=== PATIENT | female | born 1970 | race Caucasian/White ===

== ENCOUNTER → 2018-04-14 | Outpatient (CLI) | payer OTHER ==
--- NOTE | 2018-04-14 18:42 | CT ---
EXAMINATION TYPE: CT sinus wo con DATE OF EXAM: 04/14/2018 COMPARISON: NONE HISTORY: Sinus pressure, unsteady gait, and HERNANDEZ per patient. Chronic sinusitis per order. CT DLP: 581 mGycm. Automated Exposure Control for Dose Reduction was Utilized. TECHNIQUE: CT scan of the sinuses is performed without contrast, axial images are obtained, coronal r eformatted images are also reviewed. FINDINGS: There is mild to moderate mucosal thickening in the left maxillary sinus. Dependent Air-flu id level in left maxillary sinus is present. There may be additional small mucous retention cyst or p olyp in the posterior inferior left maxillary sinusitis image 13. Dependent opacity right maxillary sinus favors air fluid level over small mucous retention cyst or polyp axial image 13. There is small mucous retention cyst or polyp posterior right aspect of the larger left sphenoid sinu s axial image 25. Mild mucosal thickening anteriorly is present. There is mild to moderate mucosal thickening involving the ethmoid sinuses bilaterally most prominent anteriorly. There is some patchy opacification involving the inferior aspect bilateral frontal sinus es with mild mucosal thickening seen in the inferior left frontal sinus. The ostiomeatal complex is blocked by soft tissue density in the left. It is patent on the right but narrowed on coronal image 19. Visualized portion of mastoid air cells show no abnormal opacification. The globes are intact bilate rally. IMPRESSION: Acute on chronic paranasal sinus disease as detailed above.
== END | disposition home or self-care (01) ==
LOC: RADCTMAIN 18:12
PROVIDERS: ATTEND Otolaryngology
DX: J01.90 Acute sinusitis, unspecified (principal); J34.89 Other specified disorders of nose and nasal sinuses
CPT/HCPCS: 70486

== ENCOUNTER 2019-03-15 19:12 | Inpatient (IN) | payer BC, OTHER ==
[2019-03-15] MEDS ORDERED: NITROGLYCERIN SL TABS 0.4 MG TAB SUBLINGUAL STA (20:04)
[2019-03-15 20:17] LABS: Basophils # (A) 0.1 k/uL (0-0.2); Basophils % (A) 1 %; Eosinophils # (A) 0.1 k/uL (0-0.7); Eosinophils % (A) 2 %; HCT 45.3 % (34.0-46.0); HGB 14.9 gm/dL (11.4-16.0); Lymphocytes # (A) 2.3 k/uL (1.0-4.8); Lymphocytes % (A) 33 %; MCH 29.3 pg (25.0-35.0); MCHC 32.9 g/dL (31.0-37.0); Mean Platelet Volume 7.3; Monocytes # (A) 0.4 k/uL (0-1.0); Monocytes % (A) 6 %; Neutrophils # (A) 3.9 k/uL (1.3-7.7); Neutrophils % (A) 57 %; Platelet Count 267 k/uL (150-450); RDW 14.4 % (11.5-15.5); WBC 6.8 k/uL (3.8-10.6)
--- NOTE | 2019-03-15 20:22 | XR ---
EXAMINATION TYPE: XR chest 2V DATE OF EXAM: 03/15/2019 COMPARISON: None HISTORY: 48-year-old female with chest pain TECHNIQUE: PA and lateral views FINDINGS: Heart upper limits of normal in size. Aorta and with pulmonary vasculature within normal limits. Stra ndy left lower lung atelectasis. No consolidation or pleural effusion. IMPRESSION: Borderline heart size but otherwise without acute cardiopulmonary process.
[2019-03-15 20:25] LABS: ALT 12 U/L (9-52); AST 24 U/L (14-36); African American GFR (CKD) >90 (>60 ml/min/1.73 sqM); Albumin 4.2 g/dL (3.5-5.0); Alkaline Phosphatase 59 U/L (38-126); Anion Gap 10 mmol/L; Blood Urea Nitrogen 8 mg/dL (7-17); Calcium 9.3 mg/dL (8.4-10.2); Carbon Dioxide 19 mmol/L (22-30); Chloride 108 mmol/L (98-107); Glucose 104 mg/dL (74-99); Magnesium 1.9 mg/dL (1.6-2.3); Sodium 137 mmol/L (137-145); Total Bilirubin 0.5 mg/dL (0.2-1.3); Total Protein 7.1 g/dL (6.3-8.2)
[2019-03-15 20:29] LABS: INR 0.9 (<1.2); Partial Thromboplastin Time 23.7 sec (22.0-30.0); Prothrombin Time 9.7 sec (9.0-12.0)
[2019-03-15 20:31] LABS: Potassium 4.4 mmol/L (3.5-5.1)
[2019-03-15] MEDS ORDERED: ATORVASTATIN 80 MG TAB PO STA (21:03)
[2019-03-15] MEDS ORDERED: ACETAMINOPHEN TAB 325 MG TAB PO PRN (21:07)
[2019-03-15] MEDS ORDERED: NALOXONE 0.4 MG/ML 1 ML VIAL IV PRN (21:07)
[2019-03-15] MEDS ORDERED: MORPHINE SULFATE 4 MG/ML SYRINGE IV PRN (21:07)
[2019-03-15] MEDS ORDERED: NITROGLYCERIN OINT 1 INCH/GM PACKET TOPICAL STA (21:23)
[2019-03-15] MEDS ORDERED: CLOPIDOGREL 75 MG TAB PO STA (21:28)
--- NOTE | 2019-03-15 21:36 | ED ---
Chest Pain HPI - General Source: patient, family Mode of arrival: wheelchair Limitations: no limitations <Maged Heard - Last Filed: 03/15/19 21:29> <Fernandez Dugan - Last Filed: 03/15/19 21:50> - General Chief Complaint: Chest Pain Stated Complaint: Chest Pain Time Seen by Provider: 03/15/19 19:40 - History of Present Illness Initial Comments: Patient is a 48-year-old male presenting to the emergency department with chief complaint of chest pain. Patient reports a sudden onset of chest pain 2 days ago that has not resolved. Patient reports substernal, dull chest pain that radiates to bilateral shoulders. Patient reports mild episodes of diaphoresis with the onset of the pain but has since resolved. Patient denies any nausea or vomiting. Patient does report lightheadedness but no dizziness. Patient reports the pain is nonexertional. Patient denies shortness of breath. Patient states that she has anxiety and initially thought the pain was related to a panic attack. Patient is a smoker and does have a positive family history of cardiovascular disease. Patient does not have hypertension or hypercholesterolemia. Patient denies taking medication to alleviate his symptoms. Patient denies any blurry vision, abdominal pain or back pain. (Maged Heard) - Related Data Home Medications Medication Instructions Recorded Confirmed Acetaminophen Tab [Tylenol Tab] 650 mg PO Q4H PRN 03/15/19 03/15/19 Naproxen Sodium [Midol] 110 mg PO Q12HR PRN 03/15/19 03/15/19 Ranitidine HCl [Zantac] 75 mg PO DAILY PRN 03/15/19 03/15/19 Allergies Allergy/AdvReac Type Severity Reaction Status Date / Time aspirin Allergy Unknown HIVES, HOT Verified 03/15/19 19:44 Review of Systems ROS Other: All systems not noted in ROS Statement are negative. <Maged Heard - Last Filed: 03/15/19 21:29> ROS Other: All systems not noted in ROS Statement are negative. <Fernandez Dugan - Last Filed: 03/15/19 21:50> ROS Statement: Those systems with pertinent positive or pertinent negative responses have been documented in the HPI. EKG Findings - EKG Results: EKG: interpreted by ERMD (Says bradycardia rate of 46. Interval 162 QRS duration 86 QT since QTC 436/381ST-T wave elevations) <RitchieFernandez - Last Filed: 03/15/19 21:50> Past Medical History Past Medical History: Thyroid Disorder Additional Past Medical History / Comment(s): GRAVES DISEASE. History of Any Multi-Drug Resistant Organisms: None Reported Past Surgical History: Cholecystectomy, Orthopedic Surgery, Tubal Ligation Additional Past Surgical History / Comment(s): RIGHT LEG FX AND ANKLE SURGERY WITH HARDWARE AND REMOVAL OF HARDWARE. sinus surgery Past Anesthesia/Blood Transfusion Reactions: Motion Sickness, No Reported Reaction Additional Past Anesthesia/Blood Transfusion Reaction / Comment(s): STATES IF SHE RECEIVES TOO MUCH ANESTHESIA SHE TAKES A LONG TIME TO WAKE UP. Smoking Status: Heavy tobacco smoker Past Alcohol Use History: None Reported Past Drug Use History: None Reported - Past Family History Mother Family Medical History: No Reported History <Maged Heard - Last Filed: 03/15/19 21:29> General Exam Limitations: no limitations General appearance: alert, in no apparent distress, obese Head exam: Present: atraumatic, normocephalic, normal inspection Eye exam: Present: normal appearance, PERRL, EOMI Pupils: Present: normal accommodation ENT exam: Present: normal exam, mucous membranes moist, normal external ear exam Neck exam: Present: normal inspection, full ROM Respiratory exam: Present: normal lung sounds bilaterally Cardiovascular Exam: Present: regular rate, normal rhythm, normal heart sounds GI/Abdominal exam: Present: soft, normal bowel sounds Extremities exam: Present: normal inspection, full ROM, normal capillary refill, other (+2 dorsalis pedis and posterior tibial as bilaterally. +2 ulnar radial pulses bilaterally.) Back exam: Present: normal inspection, full ROM Neurological exam: Present: alert, oriented X3 Psychiatric exam: Present: normal affect, normal mood Skin exam: Present: warm, intact, normal color <Maged Heard - Last Filed: 03/15/19 21:29> Course <RitchieFernandez - Last Filed: 03/15/19 21:50> Vital Signs 03/15/19 03/15/19 19:14 20:32 Temperature 98.4 F Pulse Rate 63 45 L Respiratory 18 18 Rate Blood Pressure 142/83 128/83 O2 Sat by Pulse 98 100 Oximetry - Reevaluation(s) Reevaluation #1: 03/15/19 21:48 PA supervision: I pursued a [id number] evaluation the patient she presents with chest pain agreed to the shoulders yesterday. She came in today complaini ng of this pain currently she is pain-free she did have an elevated troponin. I did discuss the findings with her significant other were present. Patient will be admitted for workup. I did discuss the case with Dr. Claudio. The patient is ALLERGIC to aspirin she'll be placed on heparin and nitro glycerin paste and Plavix. A echocardiogram will be performed. The case is discussed with Dr. Johns. (Fernandez Dugan) Chest Pain [facility] - Differential Diagnosis AMI, ACS, Pericarditis - Wells Criteria Clinical Symptoms of DVT: (0) No No Alternative Diagnosis: (0) No Immobilization of Surgery in Previous 4 Weeks: (0) No Previous DVT/PE: (0) No Hemoptysis: (0) No Malignancy: (0) No <Maged Heard - Last Filed: 03/15/19 21:29> - [facility] Patient is a 48-year-old female presenting to emergency Department with chief complaint of chest pain. Patient reports sudden onset of substernal, dull, not exertional chest pain 2 days. Patient denies one episode of diaphoresis that has since resolved. Patient does report light headedness but no dizziness. Patient does not have shortness of breath. Patient denies nausea or vomiting. Patient has no abdominal back pain. EKG is unremarkable. CBC and CMP are unremarkable. Patient does have elevated troponin of 0.71. The patient was given sublingual nitro and does report decrease in pain. Patient appears to have a NSTEMI. Patient will be admitted for further medical management. Patient was given Plavix, Lipitor, nitro paste and low intensity heparin. Patient does have a heart score of 4. The admitting physician is Dr. Johns. Dr. dugan examine the patient and is in agreement with the treatment plan. Dr. Claudio cunsulted for cardioogy. (Maged Heard) Critical Care Time Critical Care Time: Yes <Fernandez Dugan - Last Filed: 03/15/19 21:50> Critical Care Time: 31 minutes of critical care time which includes initial presentation my evaluation including history physical review of labs and x-rays discussion with multiple physicians. Review of old charting that was available. Discussion with the physician secretary administrative assistant and review of orders. (Fernandez Dugan) Disposition Is patient prescribed a controlled substance at d/c from ED?: No Time of Disposition: 21:36 <Maged Heard - Last Filed: 03/15/19 21:29> <Fernandez Dugan - Last Filed: 03/15/19 21:50> Clinical Impression: NSTEMI (non-ST elevated myocardial infarction) Disposition: ADMITTED IP TO THIS HOSP Condition: Stable
[2019-03-15] MEDS ORDERED: HEPARIN SODIUM,PORCINE 5,000 UNIT/ML 1 ML VIAL IV ONE (23:38)
[2019-03-15] MEDS ORDERED: HEPARIN SODIUM,PORCINE 5,000 UNIT/ML 1 ML VIAL IV PRN (23:38)
[2019-03-15] MEDS ORDERED: HEPARIN SOD,PORK IN 0.45% NACL 25,000 UNIT in 0.45% NACL 1 250ML.BAG IV SCH (23:45)
[2019-03-15] MEDS: NICOTINE 21MG/24HR PATCH TRANSDERM SCH (23:47)
[2019-03-15] MEDS ORDERED: NITROGLYCERIN OINT 1 INCH/GM PACKET TOPICAL ONE (23:51)
[2019-03-16] MEDS ORDERED: ATORVASTATIN 80 MG TAB PO STA (08:21)
[2019-03-16] MEDS ORDERED: ALPRAZolam 0.25 MG TAB PO PRN (08:21)
[2019-03-16] MEDS ORDERED: NITROGLYCERIN SL TABS 0.4 MG TAB SUBLINGUAL PRN ×2 (08:21→11:04)
[2019-03-16] MEDS ORDERED: ALPRAZolam 0.5 MG TAB PO PRN (08:21)
[2019-03-16] MEDS ORDERED: SODIUM CHLORIDE 0.9% 1,000 ML in EMPTY BAG 1 BAG IV ONE (08:21)
[2019-03-16] MEDS: NICOTINE 21MG/24HR PATCH TRANSDERM SCH (08:27)
[2019-03-16] MEDS ORDERED: IV FLUID CONTINUATION 300 ML IV ONE (09:18)
[2019-03-16] MEDS ORDERED: LIDOCAINE 1% INJ 10MG/ML (20 ML MDV) ONE (09:36)
[2019-03-16] MEDS: MIDAZOLAM (PF) 2 MG/2 ML VIAL IV ONE ×2 (09:45→10:15)
[2019-03-16] MEDS ORDERED: LIDOCAINE 1% INJ 10MG/ML (20 ML MDV) SQ ONE (09:49)
[2019-03-16] MEDS ORDERED: CLOPIDOGREL 75 MG TAB ONE (10:10)
[2019-03-16] MEDS ORDERED: CLOPIDOGREL 75 MG TAB PO ONE (10:15)
[2019-03-16] MEDS ORDERED: ASPIRIN 81 MG ONE (10:24)
[2019-03-16] MEDS ORDERED: diphenhydrAMINE 50 MG/ML 1 ML VIAL ONE (10:24)
[2019-03-16 10:27] LABS: Cholesterol 167 mg/dL (<200); HDL Cholesterol 33 mg/dL (40-60); LDL Cholesterol,Calculated 109 mg/dL (0-99); Triglycerides 124 mg/dL (<150)
[2019-03-16] MEDS ORDERED: diphenhydrAMINE 50 MG/ML 1 ML VIAL IVP ONE (10:30)
[2019-03-16] MEDS ORDERED: ASPIRIN 81 MG PO ONE (10:30)
[2019-03-16] MEDS ORDERED: BIVALIRUDIN BOLUS 250 MG/50 ML IV ONE (10:35)
[2019-03-16] MEDS ORDERED: BIVALIRUDIN 250 MG in SODIUM CHLORIDE 0.9% 50 ML IV ONE (10:35)
[2019-03-16] MEDS ORDERED: IOPAMIDOL-370 100ML BTL INJ ONE (10:47)
[2019-03-16] MEDS ORDERED: IOPAMIDOL-370 50ML BTL INJ ONE (10:48)
[2019-03-16] MEDS ORDERED: MAG HYDROX/AL HYDROX/SIMETH 30 ML CUP PO PRN (11:04)
[2019-03-16] MEDS ORDERED: RX INFO: IV CONTRAST WAS GIVEN 1 EACH MISC MISCELLANE PRN (11:04)
[2019-03-16] MEDS ORDERED: ZOLPIDEM 5 MG TAB PO PRN (11:04)
[2019-03-16] MEDS ORDERED: ATROPINE SULFATE 0.1 MG/ML 10ML SYRINGE IV PRN (11:04)
--- NOTE | 2019-03-16 11:59 | CC ---
CARDIAC CATHETERIZATION REPORT INDICATION: Non ST-segment elevation NC. PROCEDURE NOTE: After obtaining informed consent, left heart catheterization, coronary angiogram are performed via the right femoral artery using standard Mili catheters. The patient tolerated the procedure well without any obvious immediate complications. Patient received moderate conscious sedation. Total sedation time was 16 minutes. FINDINGS: 1. HEMODYNAMICS: Left ventricular end-diastolic pressure is 14-16 mm. There is no significant gradient across the aortic valve. 2. LEFT VENTRICULOGRAM: Left ventriculogram is not performed. 3. ANGIOGRAPHIC DATA: Left main coronary artery: Left main coronary artery is a normal-sized vessel and is free of stenosis. Divides into left anterior descending coronary artery and circumflex coronary artery. Circumflex coronary artery and its branches are free of significant stenosis. LAD is a large vessel that wraps around the apex of the heart. In the mid LAD there is a focal area of 50% stenosis noted. Right coronary artery is a large dominant vessel. Mid RCA shows a 99% stenosis. There are collaterals from the left system to the distal RCA. CONCLUSIONS: 1. 99% focal stenosis involving right coronary artery which is a vessel responsible for the myocardial infarction and patient will undergo angioplasty of the same. 2. Moderate to severe stenosis involving mid LAD. PLAN: Patient will have angioplasty of the RCA. We may do an FFR of the LAD and treat her medically and do a stress test down the road. I advised the patient to quit smoking. LULU / KEILAN: [id number] /
[2019-03-16 12:14] VITALS: BMI 36.0
--- NOTE | 2019-03-16 12:19 | CONS ---
CONSULTATION CHIEF COMPLAINT: Chest pain. Maya is a 48-year-old lady with no significant past medical history who presented to hospital complaining of precordial chest pressure. She describes it as moderate to severe, intermittent episodes of precordial chest discomfort that she describes as a pressure-like sensation, came on at rest, radiated to her throat. Yesterday it was particularly worse, hence, she came to the emergency room and was admitted. The pain has radiated down her both arms into her back also. Her EKG did not reveal ischemic changes but the first set of troponin was elevated due to which she was admitted to hospital and Cardiology had been consulted for the same. Her first troponin was 0.7, second one was 1.1. This morning, patient is chest pain-free and hemodynamically stable on intravenous heparin and aspirin. PAST MEDICAL HISTORY: Negative for hypertension, diabetes, dyslipidemia. MEDICATIONS: Medications at home include Zantac and Tylenol. ALLERGIES: ASPIRIN. FAMILY HISTORY: Negative for premature coronary artery disease. SOCIAL HISTORY: Significant for smoking. There is no history of EtOH abuse or drug abuse. REVIEW OF SYSTEMS: HEENT is unremarkable. CARDIAC as described above. RESPIRATORY negative. GI negative. GENITOURINARY negative. ALLERGY/IMMUNOLOGY negative. SKIN negative. MUSCULOSKELETAL significant for arthritis. PSYCHOSOCIAL negative. ENDOCRINE Negative. DERM negative. CONSTITUTIONAL negative. ONCOLOGICAL negative. The rest of the system review is not relevant. PHYSICAL EXAM: Patient is comfortable at rest. Heart rate is 46 beats per minute. Blood pressure is 140/83, respiratory rate is 18. Chest exam reveals good air entry bilaterally. Heart exam reveals first and second heart sounds. No gallop. No murmur. No rub. Abdomen is soft, nontender. Exam of extremities did not reveal edema. Peripheral pulses are felt. PATIENT NAVIGATOR exam did not reveal focal neurological deficits. LABS: Show that the hemoglobin is 14.9, platelet count is 267. Potassium is 4.4, creatinine is 0.5. Troponins are elevated. ASSESSMENT: 1. Acute non ST-segment elevation myocardial infarction. 2. History of smoking. PLAN: Patient had been advised to quit smoking. The patient was advised to undergo cardiac catheterization with a view to performing angioplasty. She had been explained of risks, benefits and alternatives, understood and accepted. She will have an echo done today. MMODL / IJN: [id number] /
--- NOTE | 2019-03-16 12:38 | P.HPIM ---
History of Present Illness This is a pleasant 48 years old female with past medical history of Graves' disease, hypothyroidism. Presents because of chest tightness with left shoulder pain and left arm pain of 48 hours which get worse last night. She denies dyspnea or fever. Gentleman from stomach upset when she eats because of her gallbladder is removed. She has her tubes ligated and she refuses test when offered, risks benefits and alternatives are explained and she verbalized understanding. Patient smokes about pack per day but she denies alcohol or illicit tracts. Patient counseled to quit and she has nicotine patch now Vitas looks stable, patient is mildly bradycardic, patient is afebrile. Labs show an unremarkable CBC and BMP, she has elevated troponin at 0.7, 1.1 and 1.0. Patient on admission was a started on heparin drip and aspirin 81 mg as well as dose of Plavix. And IV fluids. No acute process. EKG showing bradycardia at [address]-T changes except he with inversion in the lead III and aVF. Patient already underwent cardiac cath showing 99% stenosis of the right coronary artery and planned for angioplasty, with moderate to severe stenosis of the mid LAD Review of Systems CONSTITUTIONAL: No fever, no malaise, no fatigue. HEENT: No recent visual problems or hearing problems. Denied any sore throat. CARDIOVASCULAR: No orthopnea, PND, no palpitations, no syncope. PULMONARY: No shortness of breath, no cough, no hemoptysis. GASTROINTESTINAL: No diarrhea, no nausea, no vomiting, no abdominal pain. Normoactive bowel sounds. NEUROLOGICAL: No headaches, no weakness, no numbness. HEMATOLOGICAL: Denies any bleeding or petechiae. GENITOURINARY: Denies any burning micturition, frequency, or urgency. MUSCULOSKELETAL/RHEUMATOLOGICAL: Denies any joint pain, swelling, or any muscle pain. ENDOCRINE: Denies any polyuria or polydipsia. ROS unobtainable: due to endotracheal tube Past Medical History Past Medical History: Thyroid Disorder Additional Past Medical History / Comment(s): GRAVES DISEASE. History of Any Multi-Drug Resistant Organisms: None Reported Past Surgical History: Cholecystectomy, Orthopedic Surgery, Tubal Ligation Additional Past Surgical History / Comment(s): RIGHT LEG FX AND ANKLE SURGERY WITH HARDWARE AND REMOVAL OF HARDWARE. sinus surgery Past Anesthesia/Blood Transfusion Reactions: Motion Sickness, No Reported Reaction Additional Past Anesthesia/Blood Transfusion Reaction / Comment(s): STATES IF SHE RECEIVES TOO MUCH ANESTHESIA SHE TAKES A LONG TIME TO WAKE UP. Past Psychological History: Anxiety, Depression Additional Psychological History / Comment(s): NO RX. Smoking Status: Heavy tobacco smoker Past Alcohol Use History: None Reported Additional Past Alcohol Use History / Comment(s): SMOKES 1PPD. SMOKING SINCE 14 YEARS OLD -( 34 YEARS) Past Drug Use History: None Reported - Past Family History Mother History Unknown: Yes Family Medical History: No Reported History Father Family Medical History: Hypertension Medications and Allergies Home Medications Medication Instructions Recorded Confirmed Type Acetaminophen Tab [Tylenol Tab] 650 mg PO Q4H PRN 03/15/19 03/15/19 History Naproxen Sodium [Midol] 110 mg PO Q12HR PRN 03/15/19 03/15/19 History Ranitidine HCl [Zantac] 75 mg PO DAILY PRN 03/15/19 03/15/19 History Allergies Allergy/AdvReac Type Severity Reaction Status Date / Time aspirin Allergy Unknown HIVES, HOT Verified 03/15/19 19:44 Physical Exam Vitals: Vital Signs Temp Pulse Pulse Resp BP BP Pulse Ox 03/16/19 08:49 99 03/16/19 08:00 98.2 F 18 128/66 100 03/16/19 05:16 46 L 16 03/15/19 22:55 97.9 F 44 L 18 160/88 99 03/15/19 22:00 49 L 140/83 03/15/19 21:30 43 L 139/96 99 03/15/19 21:00 60 128/78 98 03/15/19 20:35 128/78 03/15/19 20:32 45 L 18 128/83 100 03/15/19 20:30 44 L 100 03/15/19 20:00 44 L 03/15/19 19:38 51 L 03/15/19 19:14 98.4 F 63 18 142/83 98 Intake and Output 03/15/19 03/16/19 03/16/19 22:59 06:59 14:59 Intake Total 252.989 Output Total 300 Balance -47.011 Intake: IV 178 Intake, IV Titration 74.989 Amount Heparin Sod,Pork in 0.45% 74.989 NaCl 25,000 unit In 0.45 % NaCl 1 250ml.bag @ 9 UNITS/KG/HR 9.108 mls/hr IV .Q24H [facility] Rx#: [id number] Output: Urine 300 Other: Weight 101.605 kg 101.2 kg 101.2 kg GENERAL: The patient is alert and oriented x3, not in any acute distress. Obese HEENT: Pupils are round and equally reacting to light. EOMI. No scleral icterus. No conjunctival pallor. Normocephalic, atraumatic. No pharyngeal erythema. No thyromegaly. CARDIOVASCULAR: S1 and S2 present. No murmurs, rubs, or gallops. PULMONARY: Chest is clear to auscultation, no wheezing or crackles. ABDOMEN: Soft, nontender, nondistended, normoactive bowel sounds. No palpable organomegaly. MUSCULOSKELETAL: No joint swelling or deformity. EXTREMITIES: No cyanosis, clubbing, or pedal edema. NEUROLOGICAL: Gross neurological examination did not reveal any focal deficits. SKIN: No rashes. Results CBC & Chem 7: 03/15/19 19:50 03/15/19 19:50 Labs: Abnormal Lab Results - Last 24 Hours (Table) 03/15/19 03/15/19 03/16/19 Range/Units 19:50 19:50 01:46 APTT (22.0-30.0) sec Chloride 108 H (98-107) mmol/L Carbon Dioxide 19 L (22-30) mmol/L Glucose 104 H (74-99) mg/dL Troponin I 0.741 H* 1.140 H* (0.000-0.034) ng/mL LDL Cholesterol, Calc (0-99) mg/dL HDL Cholesterol (40-60) mg/dL 03/16/19 03/16/19 03/16/19 Range/Units 05:41 08:11 10:10 APTT 30.8 H (22.0-30.0) sec Chloride (98-107) mmol/L Carbon Dioxide (22-30) mmol/L Glucose (74-99) mg/dL Troponin I 1.050 H* (0.000-0.034) ng/mL LDL Cholesterol, Calc 109 H (0-99) mg/dL HDL Cholesterol 33 L (40-60) mg/dL Thrombosis Risk Factor Assmnt - Choose All That Apply Any of the Below Risk Factors Present?: Yes Each Factor Represents 1 point: Age 41-60 years, Oral contraceptives or hormone replacement therapy Thrombosis Risk Factor Assessment Total Risk Factor Score: 2 Thrombosis Risk Factor Assessment Level: Low Risk Assessment and Plan Assessment: Non-STEMI Mild asymptomatic bradycardia Nicotine dependence Obesity Status post cholecystectomy Plan: This is a pleasant 48 years old female who presents with non-STEMI. Cardiac cath showing 99% stenosis of the RCA and moderate to severe stenosis of the mid LAD, planned for angioplasty status post stent placement. Continue with nicotine patch Labs and medication were reviewed.. Continue same treatment. Continue with symptomatic treatment. Resume home medication. Monitor lytes and vitals. DVT and GI prophylaxis. Further recommendations of the clinical course of the patient DVT prophylaxis: Subcutaneous heparin GI Prophylaxis: Pepcid Prognosis is guarded
--- NOTE | 2019-03-16 13:35 | ECHOF ---
Referral Reason:dc MEASUREMENTS -------- HEIGHT: 165.1 cm WEIGHT: 101.2 kg BP: RVIDd: 2.7 cm (< 3.3) IVSd: 1.0 cm (0.6 - 1.1) LVIDd: 4.3 cm (3.9 - 5.3) LVPWd: 1.2 cm (0.6 - 1.1) IVSs: 1.4 cm LVIDs: 3.4 cm LVPWs: 1.4 cm LA Diam: 3.9 cm (2.7 - 3.8) LAESV Index (A-L): 24.55 ml/m Ao Diam: 3.1 cm (2.0 - 3.7) AV Cusp: 1.4 cm (1.5 - 2.6) LA Diam: 3.5 cm (2.7 - 3.8) MV EXCURSION: 21.866 mm (> 18.000) MV EF SLOPE: 85 mm/s (70 - 150) EPSS: 0.8 cm MV E Turner: 1.23 m/s MV DecT: 215 ms MV A Turner: 0.83 m/s MV E/A Ratio: 1.49 RAP: 5.00 mmHg RVSP: 11.59 mmHg FINDINGS -------- Sinus rhythm. This was a technically good study. The left ventricular size is normal. Overall left ventricular systolic function is low-normal with, an EF between 50 - 55 %. Inferior basal Hypokinesis The right ventricle is normal in size. The left atrial size is normal. Normal LA size by volume 22+/-6 ml/m2. The right atrial size is normal. There is mild aortic valve sclerosis. There is no evidence of aortic regurgitation. Mild mitral annular calcification present. Mild mitral regurgitation is present. Mild tricuspid regurgitation present. There is no evidence of pulmonary hypertension. The right v entricular systolic pressure, as measured by Doppler, is 11.59mmHg. There is no pulmonic regurgitation present. The aortic root size is normal. There is no pericardial effusion. CONCLUSIONS -------- 1. Sinus rhythm. 2. This was a technically good study. 3. The left ventricular size is normal. 4. Overall left ventricular systolic function is low-normal with, an EF between 50 - 55 %. 5. Inferior basal Hypokinesis 6. The right ventricle is normal in size. 7. The left atrial size is normal. 8. Normal LA size by volume 22+/-6 ml/m2. 9. The right atrial size is normal. 10. There is mild aortic valve sclerosis. 11. Mild mitral annular calcification present. 12. Mild mitral regurgitation is present. 13. Mild tricuspid regurgitation present. 14. There is no evidence of pulmonary hypertension. 15. The right ventricular systolic pressure, as measured by Doppler, is 11.59mmHg. 16. There is no pulmonic regurgitation present. 17. The aortic root size is normal. 18. There is no pericardial effusion. PRESSURE WELDER: Inge Arana RDCS
[2019-03-16] MEDS: diphenhydrAMINE ELIXIR 25 MG/10 ML CUP PO SCH ×2 (15:04→22:40)
--- NOTE | 2019-03-16 17:26 | PTCA ---
PERCUTANEOUSTRANS CORORONARY ANGIOGRAPHY 03/16/2019 PROCEDURE: PTCA and stenting of proximal RCA. PERFORMED BY: Dr. Sarai Snyder. Moderate conscious sedation time was 17 minutes. Patient was administered Versed. Oxygen saturation, hemodynamics and EKG were monitored closely. CLINICAL INFORMATION: Mrs. Maya Cruz is a 48-year-old lady with a history of smoking who came into the hospital with episode of chest pain, had a T-wave inversion in inferior leads and troponin went up and presented as a non-ST elevation [place]. She was evaluated by Dr. Claudio who performed cardiac cath which revealed 95% stenosis in the proximal RCA which was a fair caliber technically dominant vessel. There was also a mid LAD long lesion of about 70-75%, eccentric in nature. She was advised intervention of the RCA which was the culprit vessel. I saw the patient following the cardiac cath, explained to her the rationale, risks, benefits, options and proceeded with the procedure. PROCEDURE NOTE: The existing 6-Indian introducer in the right femoral artery was used to perform procedure. I used a standard right Mili guide catheter and a run-through wire to cross the lesion. A 2.25 caliber 12 mm Trek balloon was used to pre-dilate the lesion. I then deployed a 15 mm long 2.5 caliber Xience stent at 11 atmospheres. Patient had chest pain. No EKG changes. Excellent angiographic result was achieved. She received 600 mg of Plavix. She received Angiomax bolus and infusion. There was a question of aspirin allergy with some hives and a question of shortness of breath with aspirin. However, I gave her 81 mg in the laborer aquatic life and following the procedure, she had no hives and she had no issues at all. I do not believe she has any significant aspirin allergy. We will, therefore, continue aspirin 81 mg daily that was given in the laborer aquatic life. The sheath was then taken out and Angio-Seal device used to secure hemostasis and she was sent to the room in stable condition. Excellent angiographic result without complication was achieved. I expect the patient to be discharged soon. She does have an LAD lesion which will be addressed as an outpatient at a later time. MMODL / IJN: [id number] /
[2019-03-16] MEDS: SODIUM CHLORIDE 0.9% 1,000 ML IV SCH ×2 (20:12)
[2019-03-16] MEDS: ATORVASTATIN 80 MG TAB PO SCH (20:15)
[2019-03-16] MEDS: FAMOTIDINE 20 MG/2 ML VIAL IV SCH (20:15)
[2019-03-16] MEDS ORDERED: diphenhydrAMINE 25 MG CAP PO SCH (21:00)
[2019-03-17 06:30] LABS: Basophils # (A) 0.1 k/uL (0-0.2); Basophils % (A) 1 %; Eosinophils # (A) 0.2 k/uL (0-0.7); Eosinophils % (A) 2 %; HCT 45.3 % (34.0-46.0); HGB 14.7 gm/dL (11.4-16.0); Lymphocytes # (A) 2.8 k/uL (1.0-4.8); Lymphocytes % (A) 35 %; MCH 29.6 pg (25.0-35.0); MCHC 32.4 g/dL (31.0-37.0); MCV 91.4 fL (80.0-100.0); Mean Platelet Volume 7.5; Monocytes # (A) 0.5 k/uL (0-1.0); Monocytes % (A) 6 %; Neutrophils # (A) 4.4 k/uL (1.3-7.7); Neutrophils % (A) 54 %; Platelet Count 249 k/uL (150-450); RBC 4.96 m/uL (3.80-5.40); RDW 14.7 % (11.5-15.5)
[2019-03-17 06:40] LABS: African American GFR (CKD) >90 (>60 ml/min/1.73 sqM); Anion Gap 9 mmol/L; Blood Urea Nitrogen 13 mg/dL (7-17); Calcium 9.1 mg/dL (8.4-10.2); Carbon Dioxide 22 mmol/L (22-30); Chloride 107 mmol/L (98-107); Glucose 134 mg/dL (74-99); Potassium 4.4 mmol/L (3.5-5.1); Sodium 138 mmol/L (137-145)
--- NOTE | 2019-03-17 07:08 | P.PN ---
Subjective Progress Note Date: 03/17/19 Principal diagnosis: This is a continue progress note on a 48-year-old white female with history of RCA stenosis with non-ST elevation [place]. The patient is sitting comfortably with decreased shortness of breath. The patient clinically is improved. No voiding difficulties are stated. The patient states no significant nausea, vomiting or diarrhea. The patient is tolerating diet appropriately. Objective - Vital Signs Vital signs: Vital Signs Temp 98.1 F 03/17/19 04:00 Pulse 62 03/17/19 04:00 Resp 16 03/17/19 04:00 BP 151/66 03/17/19 04:00 Pulse Ox 98 03/17/19 04:00 Intake & Output 03/16/19 03/17/19 03/17/19 18:59 06:59 18:59 Intake Total 474.989 Output Total 701 Balance -226.011 Weight 101.2 kg 102.8 kg Intake: IV 178 Intake, IV Titration 74.989 Amount Heparin Sod,Pork in 0.45% 74.989 NaCl 25,000 unit In 0.45 % NaCl 1 250ml.bag @ 9 UNITS/KG/HR 9.108 mls/hr IV .Q24H [facility] Rx#: [id number] Oral 222 Output: Urine 700 Stool 1 Other: # Voids 1 - Constitutional General appearance: Present: average body habitus - EENT Eyes: Present: EOMI. Absent: abnormal pupil ENT: Absent: hard of hearing - Neck Neck: Absent: lymphadenopathy - Respiratory Respiratory: bilateral: CTA - Cardiovascular Rhythm: regular Heart sounds: normal: S1, S2 Abnormal Heart Sounds: Absent: S3 Gallop - Gastrointestinal General gastrointestinal: Present: soft. Absent: tenderness - Neurologic Neurologic: Present: CNII-XII intact - Labs CBC & Chem 7: 03/17/19 05:48 03/17/19 05:48 Labs: Abnormal Lab Results - Last 24 Hours (Table) 03/16/19 03/16/19 03/17/19 Range/Units 08:11 10:10 05:48 Glucose 134 H (74-99) mg/dL Troponin I 1.050 H* (0.000-0.034) ng/mL LDL Cholesterol, Calc 109 H (0-99) mg/dL HDL Cholesterol 33 L (40-60) mg/dL Assessment and Plan (1) Stented coronary artery Current Visit: Yes Status: Acute Code(s): Z95.5 - PRESENCE OF CORONARY ANGIOPLASTY IMPLANT AND GRAFT SNOMED Code(s): 120260837 (2) NSTEMI (non-ST elevated myocardial infarction) Current Visit: Yes Status: Acute Code(s): I21.4 - NON-ST ELEVATION (NSTEMI) MYOCARDIAL INFARCTION SNOMED Code(s): 20874272 Plan: With history of stent placement, we will continue to follow with appropriate anticoagulation and posterior my medications. Appreciate cardiology. Anticipate discharge in next 24 hours if tolerating medicines and continued stabilized. Smoking cessation was again discussed with the patient
[2019-03-17] MEDS: SODIUM CHLORIDE 0.9% 1,000 ML IV SCH (09:05)
[2019-03-17] MEDS: ASPIRIN 81 MG PO SCH (09:18)
[2019-03-17] MEDS: NICOTINE 21MG/24HR PATCH TRANSDERM SCH (09:18)
[2019-03-17] MEDS: FAMOTIDINE 20 MG/2 ML VIAL IV SCH (09:19)
[2019-03-17] MEDS: diphenhydrAMINE ELIXIR 25 MG/10 ML CUP PO SCH ×2 (09:24→23:14)
[2019-03-17] MEDS ORDERED: CLOPIDOGREL 75 MG TAB PO SCH (11:06)
--- NOTE | 2019-03-17 15:55 | P.PN ---
Subjective Progress Note Date: 03/17/19 This is a 48-year-old female who presented to the hospital with a non-Q-wave myocardial infarction. She has a strong family history of premature coronary artery disease on her mother's side of the family. She is also a smoker. No prior documented history of hypertension, diabetes or hyperlipid emia. She was taken to the cardiac catheterization lab where she subsequently underwent stenting to the right coronary artery. An echocardiogram with Doppler study was performed which revealed an ejection fraction of 50-55%. She was seen and examined this morning, denied any chest discomfort, no difficulty in breathing. She's been up ambulating in the hallway as tolerated. Her EKG from this morning showed a normal sinus rhythm with no changes from post-PCI. White blood cell count is normal, hemoglobin 14.7, platelet count 249. Sodium 138, potassium 4.4, BUN 13 and creatinine 0.7. Objective - Vital Signs Vital signs: Vital Signs Temp 99.2 F 03/17/19 12:00 Pulse 53 L 03/17/19 12:00 Resp 18 03/17/19 12:00 BP 145/72 03/17/19 12:00 Pulse Ox 99 03/17/19 12:00 Intake & Output 03/16/19 03/17/19 03/17/19 18:59 06:59 18:59 Intake Total 474.989 480 Output Total 701 Balance -226.011 480 Weight 101.2 kg 102.8 kg Intake: IV 178 Intake, IV Titration 74.989 Amount Heparin Sod,Pork in 0.45% 74.989 NaCl 25,000 unit In 0.45 % NaCl 1 250ml.bag @ 9 UNITS/KG/HR 9.108 mls/hr IV .Q24H [facility] Rx#: [id number] Oral 222 480 Output: Urine 700 Stool 1 Other: # Voids 1 1 - Exam PHYSICAL EXAMINATION: GENERAL: 48-year-old female in no acute distress at the time of my examination HEENT: Head is atraumatic, normocephalic. Pupils equal, round. Sclera anicteric. Conjunctiva are clear. Mucous membranes of the mouth are moist. Neck is supple. There is no elevated jugular venous pressure. No carotid bruit is heard. HEART EXAMINATION: Heart S1, S2 normal. No murmur or gallop heard. CHEST EXAMINATION: Lungs are clear to auscultation and precussion. No chest wall tenderness is noted on palpation or with deep breathing. ABDOMEN: Soft, nontender. Bowel sounds are heard. No organomegaly noted. EXTREMITIES: 2+ peripheral pulses with no evidence of peripheral edema and no calf tenderness noted. Right groin is soft, no evidence of any hematoma. NEUROLOGIC patient is awake, alert and oriented 3. . - Labs CBC & Chem 7: 03/17/19 05:48 03/17/19 05:48 Labs: Abnormal Lab Results - Last 24 Hours (Table) 03/17/19 Range/Units 05:48 Glucose 134 H (74-99) mg/dL Assessment and Plan Plan: Assessment and plan #1 status post angioplasty and stenting of the right coronary artery. #2 nicotine dependence #3 family history of premature coronary artery disease Plan From cardiology's perspective, we'll continue to monitor the patient for 24 hours, plan for possible discharge home in the morning if stable. DNP note has been reviewed, I agree with a documented findings and plan of care. Patient was seen and examined.
[2019-03-17] MEDS: ATORVASTATIN 80 MG TAB PO SCH (21:00)
[2019-03-17] MEDS ORDERED: FAMOTIDINE 20 MG TAB PO SCH (21:00)
--- NOTE | 2019-03-18 08:42 | P.DS ---
Providers Date of admission: 03/15/19 21:07 Attending physician: Isaiah Calderon Consults: 03/15/19 21:07 Consult Physician Stat Consulting Provider: Sam Claudio Consult Reason/Comments: NSTEMI Do you want consulting provider notified?: Yes 03/16/19 11:04 Consult Physician Routine Consulting Provider: [facility] Consult Reason/Comments: Post Interventional patient Do you want consulting provider notified?: Already Contacted Primary care physician: Isaiah Calderon - Discharge Diagnosis(es) (1) Stented coronary artery Current Visit: Yes Status: Acute (2) NSTEMI (non-ST elevated myocardial infarction) Current Visit: Yes Status: Acute Hospital Course: This discharge summary 48-year-old white female with non-ST elevation [place]. The patient was placed on appropriate treatment after having right coronary artery stent with critical stenosis. The patient now feeling better and we'll follow- up with me in about one week. We had a long discussion regarding tobacco cessation. Patient Condition at Discharge: Stable Plan - Discharge Summary Discharge Rx Participant: No New Discharge Prescriptions: New Aspirin 81 mg PO DAILY #30 chew Nicotine 21Mg/24Hr Patch [Habitrol] 1 patch TRANSDERM DAILY #30 patch Atorvastatin [Lipitor] 80 mg PO HS #30 tab Nitroglycerin Sl Tabs [Nitrostat] 0.4 mg SUBLINGUAL Q5M PRN #25 tab PRN Reason: Chest Pain Clopidogrel [Plavix] 75 mg PO DAILY #30 tab ALPRAZolam [Xanax] 0.5 mg PO Q6HR PRN tab PRN Reason: Moderate Anxiety Discontinued Naproxen Sodium [Midol] 110 mg PO Q12HR PRN PRN Reason: CRAMPS Acetaminophen Tab [Tylenol Tab] 650 mg PO Q4H PRN PRN Reason: Pain Or Fever > 100.5 No Action Ranitidine HCl [Zantac] 75 mg PO DAILY PRN PRN Reason: Heartburn Discharge Medication List Ranitidine HCl [Zantac] 75 mg PO DAILY PRN 03/15/19 [History] ALPRAZolam [Xanax] 0.5 mg PO Q6HR PRN tab 03/18/19 [Rx] Aspirin 81 mg PO DAILY #30 chew 03/18/19 [Rx] Atorvastatin [Lipitor] 80 mg PO HS #30 tab 03/18/19 [Rx] Clopidogrel [Plavix] 75 mg PO DAILY #30 tab 03/18/19 [Rx] Nicotine 21Mg/24Hr Patch [Habitrol] 1 patch TRANSDERM DAILY #30 patch 03/18/19 [Rx] Nitroglycerin Sl Tabs [Nitrostat] 0.4 mg SUBLINGUAL Q5M PRN #25 tab 03/18/19 [Rx] Follow up Appointment(s)/Referral(s): Sam Claudio MD [STAFF PHYSICIAN] - 03/24/19 12:45 pm Isaiah Calderon MD [Primary Care Provider] - 3 Days Patient Instructions/Handouts: How to Stop Smoking (DC), Heart Healthy Diet (DC), Coronary Intravascular Stent Placement (DC)
[2019-03-18 09:06] VITALS: BP 123/76; PULSE 69; RESP 18; TEMP 98
[2019-03-18] MEDS: ASPIRIN 81 MG PO SCH (09:18)
[2019-03-18] MEDS: diphenhydrAMINE ELIXIR 25 MG/10 ML CUP PO SCH (09:20)
--- NOTE | 2019-03-18 14:36 | P.PN ---
Subjective Progress Note Date: 03/18/19 This is a 48-year-old female who presented to the hospital with a non-Q-wave myocardial infarction. She has a strong family history of premature coronary artery disease on her mother's side of the family. She is also a smoker. No prior documented history of hypertension, diabetes or hyperlipid emia. She was taken to the cardiac catheterization lab where she subsequently underwent stenting to the right coronary artery. An echocardiogram with Doppler study was performed which revealed an ejection fraction of 50-55%. She was seen and examined this morning, denied any chest discomfort, no difficulty in breathing. She's been up ambulating in the hallway as tolerated. Her EKG from this morning showed a normal sinus rhythm with no changes from post-PCI. White blood cell count is normal, hemoglobin 14.7, platelet count 249. Sodium 138, potassium 4.4, BUN 13 and creatinine 0.7. 03/18/2019 Patient was seen and examined today, denied any further chest discomfort, breathing is stable. Hemodynamically stable. Objective - Vital Signs Vital signs: Vital Signs Temp 98.0 F 03/18/19 08:05 Pulse 69 03/18/19 08:05 Resp 18 03/18/19 08:05 BP 123/76 03/18/19 08:05 Pulse Ox 97 03/18/19 04:00 Intake & Output 03/17/19 03/18/19 03/18/19 18:59 06:59 18:59 Intake Total 720 240 900 Balance 720 240 900 Weight 102.3 kg Intake: Oral 720 240 900 Other: Voiding Method Toilet # Voids 1 2 - Exam PHYSICAL EXAMINATION: GENERAL: 48-year-old female in no acute distress at the time of my examination HEENT: Head is atraumatic, normocephalic. Pupils equal, round. Sclera anicteric. Conjunctiva are clear. Mucous membranes of the mouth are moist. Neck is supple. There is no elevated jugular venous pressure. No carotid bruit is heard. HEART EXAMINATION: Heart S1, S2 normal. No murmur or gallop heard. CHEST EXAMINATION: Lungs are clear to auscultation and precussion. No chest wall tenderness is noted on palpation or with deep breathing. ABDOMEN: Soft, nontender. Bowel sounds are heard. No organomegaly noted. EXTREMITIES: 2+ peripheral pulses with no evidence of peripheral edema and no calf tenderness noted. Right groin is soft, no evidence of any hematoma. NEUROLOGIC patient is awake, alert and oriented 3. . - Labs CBC & Chem 7: 03/17/19 05:48 03/17/19 05:48 Assessment and Plan Plan: Assessment and plan #1 status post angioplasty and stenting of the right coronary artery. #2 nicotine dependence #3 family history of premature coronary artery disease Plan From cardiology's perspective, patient may be discharged home today. Follow-up appointment in the office post discharge. She's been educated regarding the importance of taking her medication regularly, and not smoking. DNP note has been reviewed, I agree with a documented findings and plan of care. Patient was seen and examined.
== END 2019-03-18 09:58 | disposition home or self-care (01) | DRG 247 ==
LOC: EC 19:12 → 3SCARD 21:07
PROVIDERS: ADMIT Family Medicine; ATTEND Family Medicine
PROC: B2111ZZ Fluoroscopy of Multiple Coronary Arteries using Low Osmolar Contrast (ICD-10-PCS; 2019-03-16)
PROC: 027034Z Dilation of Coronary Artery, One Artery with Drug-eluting Intraluminal Device, Percutaneous Approach (ICD-10-PCS; principal; 2019-03-16 08:59)
PROC: 4A023N7 Measurement of Cardiac Sampling and Pressure, Left Heart, Percutaneous Approach (ICD-10-PCS; 2019-03-16 08:59)
DX: I21.4 Non-ST elevation (NSTEMI) myocardial infarction (principal); E03.9 Hypothyroidism, unspecified; E66.9 Obesity, unspecified; F17.210 Nicotine dependence, cigarettes, uncomplicated; F32.9 Major depressive disorder, single episode, unspecified; F41.0 Panic disorder [episodic paroxysmal anxiety]; I25.10 Atherosclerotic heart disease of native coronary artery without angina pectoris; R00.1 Bradycardia, unspecified; Z68.36 Body mass index [BMI] 36.0-36.9, adult; Z90.49 Acquired absence of other specified parts of digestive tract; Z98.51 Tubal ligation status; Z71.6 Tobacco abuse counseling; Z82.49 Family history of ischemic heart disease and other diseases of the circulatory system
CPT/HCPCS: 36415; 71046; 80048; 80053; 80061; 83735; 84484; 85025; 85610; 85730; 93005; 93306; 93458; 94760; 99291; C1874

== ENCOUNTER 2022-10-08 19:15 | Emergency (ER) | payer BC ==
[2022-10-08 19:25] VITALS: RESP 18; TEMP 97.9
--- NOTE | 2022-10-08 20:14 | ED ---
General Adult HPI - General Chief complaint: Chest Pain Stated complaint: chest pain/trouble breathing Time Seen by Provider: 10/08/22 19:34 Source: patient Limitations: no limitations - History of Present Illness Initial comments: This is a 52-year-old female with a past medical history including Graves' disease and hyperlipidemia presents emergency department for palpitations. The patient stated these palpitations been present and intermittent over the last 4 months and stated that nothing acute or worsening happened over the last several days to come to the emergency department today. The patient stated "they just keep happening and I need to get them figured out." The patient did state that she attempted to talk to the director of emergency nursing office however stated "they keep changing how much I over them and they will give me any answer so I haven't followed up." The patient stated that she has had palpitations before but stated that this is been persistent for 4 months. The patient denied any other acute pain or complaints at this time and denied any acute chest pain. The patient also denied any shortness of breath. - Related Data Home Medications Medication Instructions Recorded Confirmed Aspirin 243 mg PO DAILY 10/08/22 10/08/22 Atorvastatin [Lipitor] 80 mg PO DIRECTED 10/08/22 10/08/22 Allergies Allergy/AdvReac Type Severity Reaction Status Date / Time aspirin Allergy Unknown HIVES, HOT Verified 10/08/22 20:16 Review of Systems ROS Statement: Those systems with pertinent positive or pertinent negative responses have been documented in the HPI. ROS Other: All systems not noted in ROS Statement are negative. Past Medical History Past Medical History: Thyroid Disorder Additional Past Medical History / Comment(s): GRAVES DISEASE. History of Any Multi-Drug Resistant Organisms: None Reported Past Surgical History: Cholecystectomy, Heart Catheterization With Stent, Orthopedic Surgery, Tubal Ligation Additional Past Surgical History / Comment(s): RIGHT LEG FX AND ANKLE SURGERY WITH HARDWARE AND REMOVAL OF HARDWARE. sinus surgery Past Anesthesia/Blood Transfusion Reactions: Motion Sickness, No Reported Reaction Additional Past Anesthesia/Blood Transfusion Reaction / Comment(s): STATES IF SHE RECEIVES TOO MUCH ANESTHESIA SHE TAKES A LONG TIME TO WAKE UP. Past Psychological History: Anxiety, Depression Smoking Status: Vaper Past Alcohol Use History: None Reported Past Drug Use History: None Reported - Past Family History Mother History Unknown: Yes Family Medical History: No Reported History Father Family Medical History: Hypertension General Exam Limitations: no limitations General appearance: alert, in no apparent distress Head exam: Present: atraumatic, normocephalic, normal inspection Eye exam: Present: normal appearance, PERRL Pupils: Present: normal accommodation ENT exam: Present: normal exam, normal oropharynx, mucous membranes moist Neck exam: Present: normal inspection, full ROM Respiratory exam: Present: normal lung sounds bilaterally Cardiovascular Exam: Present: regular rate, normal rhythm, normal heart sounds GI/Abdominal exam: Present: soft, normal bowel sounds Extremities exam: Present: normal inspection, full ROM Back exam: Present: normal inspection, full ROM Neurological exam: Present: alert, oriented X3, CN II-XII intact Psychiatric exam: Present: normal affect, normal mood Skin exam: Present: warm, dry Course Vital Signs 10/08/22 10/08/22 10/08/22 19:22 20:00 21:00 Temperature 97.9 F Pulse Rate 76 78 64 Respiratory 18 18 18 Rate Blood Pressure 145/85 158/83 131/78 O2 Sat by Pulse 98 99 98 Oximetry 10/08/22 10/08/22 21:30 22:00 Temperature Pulse Rate 54 L 81 Respiratory 18 18 Rate Blood Pressure 144/95 152/83 O2 Sat by Pulse 97 97 Oximetry EKG Findings - EKG Comments: EKG Findings:: An EKG was obtained and was interpreted by myself showing a rate of 72, ME interval 157, QRS duration 98 and QTC of 390. This EKG showed a normal sinus rhythm with no ST segment elevation or depression noted. Medical Decision Making - Medical Decision Making Was pt. sent in by a medical professional or institution (, PA, DIE ENGRAVING SUPERVISOR, urgent care, hospital, or group home...) When possible be specific @ -No Did you speak to anyone other than the patient for history (EMS, parent, family, police, friend...)? What history was obtained from this source @ -No Did you review nursing and triage notes (agree or disagree)? Why? @ -I reviewed and agree with nursing and triage notes Were old charts reviewed (outside hosp., previous admission, EMS record, old EKG, old radiological studies, urgent care reports/EKG's, group home records)? Report findings @ -No old charts were reviewed Differential Diagnosis (chest pain, altered mental status, abdominal pain women, abdominal pain men, vaginal bleeding, weakness, fever, dyspnea, syncope, headache, dizziness, GI bleed, back pain, seizure, CVA, palpatations, mental health)? @ -ACS, hypothyroidism, chest wall muscle strain, palpitations EKG interpreted by me (3pts min.). @ -As above X-rays interpreted by me (1pt min.). @ -Chest x-ray was obtained and was interpreted by myself showing no acute process. CT interpreted by me (1pt min.). @ -None done U/S interpreted by me (1pt. min.). @ -None done What testing was considered but not performed or refused? (CT, X-rays, U/S, labs)? Why? @ -None What meds were considered but not given or refused? Why? @ -None Did you discuss the management of the patient with other professionals (professionals i.e. , PA, DIE ENGRAVING SUPERVISOR, lab, RT, psych nurse, social media strategist, residential sales consultant, teacher, college service officer, casework supervisor)? Give summary @ -No Was smoking cessation discussed for >3mins.? @ -Yes Was critical care preformed (if so, how long)? @ -No Were there social determinants of health that impacted care today? How? (Homelessness, low income, unemployed, alcoholism, drug addiction, transportation, low edu. Level, literacy, decrease access to med. care, [facility], rehab)? @ -No Was there de-escalation of care discussed even if they declined (Discuss DNR or withdrawal of care, Hospice)? DNR status @ -No What co-morbidities impacted this encounter? (DM, HTN, Smoking, COPD, CAD, Cancer, CVA, ARF, Chemo, Hep., AIDS, mental health diagnosis, sleep apnea, morbid obesity)? @ -Graves' disease, hypertension Was patient admitted / discharged? Hospital course, mention meds given and route, prescriptions, significant lab abnormalities, going to OR and other pertinent info. @ -The patient was seen and evaluated in the emergency department. Physical exam, the patient was resting in bed without any acute distress. Vital signs admission were stable. The patient didn't have any complaints palpitations in the emergency department. All workup was negative. The patient likely had palpitations, NOS and was advised to follow-up with her director of emergency nursing for further workup and evaluation. The patient was understanding of this and bharath portions were answered appropriately. The patient was discharged home in stable condition. Undiagnosed new problem with uncertain prognosis? @ -No Drug Therapy requiring intensive monitoring for toxicity (Heparin, Nitro, Insulin, Cardizem)? @ -No Were any procedures done? @ -No Diagnosis/symptom? @ -Palpitations, NOS Acute, or Chronic, or Acute on Chronic? @ -Acute on chronic Uncomplicated (without systemic symptoms) or Complicated (systemic symptoms)? @ -Uncomplicated Side effects of treatment? @ -No Exacerbation, Progression, or Severe Exacerbation? @ -No Poses a threat to life or bodily function? How? (Chest pain, USA, NV, pneumonia, PE, COPD, DKA, ARF, appy, cholecystitis, CVA, Diverticulitis, Homicidal, Suicidal, threat to staff... and all critical care pts) @ -No - Lab Data Result diagrams: 10/08/22 19:56 10/08/22 19:56 Lab Results 10/08/22 10/08/22 10/08/22 Range/Units 19:56 19:56 19:56 WBC 7.6 (3.8-10.6) k/uL RBC 5.09 (3.80-5.40) m/uL Hgb 14.8 (11.4-16.0) gm/dL Hct 43.0 (34.0-46.0) % MCV 84.5 (80.0-100.0) fL MCH 29.1 (25.0-35.0) pg MCHC 34.4 (31.0-37.0) g/dL RDW 12.8 (11.5-15.5) % Plt Count 239 (150-450) k/uL MPV 8.1 Neutrophils % 62 % Lymphocytes % 28 % Monocytes % 6 % Eosinophils % 2 % Basophils % 1 % Neutrophils # 4.8 (1.3-7.7) k/uL Lymphocytes # 2.2 (1.0-4.8) k/uL Monocytes # 0.4 (0-1.0) k/uL Eosinophils # 0.2 (0-0.7) k/uL Basophils # 0.1 (0-0.2) k/uL PT 9.7 (9.0-12.0) sec INR 0.9 (<1.2) APTT 21.4 L (22.0-30.0) sec Sodium 139 (137-145) mmol/L Potassium 4.2 (3.5-5.1) mmol/L Chloride 105 (98-107) mmol/L Carbon Dioxide 24 (22-30) mmol/L Anion Gap 10 mmol/L BUN 11 (7-17) mg/dL Creatinine 0.69 (0.52-1.04) mg/dL Est GFR (CKD-EPI)AfAm >90 (>60 ml/min/1.73 sqM) Est GFR (CKD-EPI)NonAf >90 (>60 ml/min/1.73 sqM) Glucose 139 H (74-99) mg/dL Calcium 9.8 (8.4-10.2) mg/dL Magnesium 1.8 (1.6-2.3) mg/dL Total Bilirubin 0.5 (0.2-1.3) mg/dL AST 25 (14-36) U/L ALT 31 (4-34) U/L Alkaline Phosphatase 108 (38-126) U/L Troponin I (0.000-0.034) ng/mL Total Protein 7.2 (6.3-8.2) g/dL Albumin 4.2 (3.5-5.0) g/dL Lipase 85 (23-300) U/L TSH 0.018 L (0.465-4.680) mIU/L Free T4 1.35 (0.78-2.19) ng/dL 10/08/22 Range/Units 19:56 WBC (3.8-10.6) k/uL RBC (3.80-5.40) m/uL Hgb (11.4-16.0) gm/dL Hct (34.0-46.0) % MCV (80.0-100.0) fL MCH (25.0-35.0) pg MCHC (31.0-37.0) g/dL RDW (11.5-15.5) % Plt Count (150-450) k/uL MPV Neutrophils % % Lymphocytes % % Monocytes % % Eosinophils % % Basophils % % Neutrophils # (1.3-7.7) k/uL Lymphocytes # (1.0-4.8) k/uL Monocytes # (0-1.0) k/uL Eosinophils # (0-0.7) k/uL Basophils # (0-0.2) k/uL PT (9.0-12.0) sec INR (<1.2) APTT (22.0-30.0) sec Sodium (137-145) mmol/L Potassium (3.5-5.1) mmol/L Chloride (98-107) mmol/L Carbon Dioxide (22-30) mmol/L Anion Gap mmol/L BUN (7-17) mg/dL Creatinine (0.52-1.04) mg/dL Est GFR (CKD-EPI)AfAm (>60 ml/min/1.73 sqM) Est GFR (CKD-EPI)NonAf (>60 ml/min/1.73 sqM) Glucose (74-99) mg/dL Calcium (8.4-10.2) mg/dL Magnesium (1.6-2.3) mg/dL Total Bilirubin (0.2-1.3) mg/dL AST (14-36) U/L ALT (4-34) U/L Alkaline Phosphatase (38-126) U/L Troponin I <0.012 (0.000-0.034) ng/mL Total Protein (6.3-8.2) g/dL Albumin (3.5-5.0) g/dL Lipase (23-300) U/L TSH (0.465-4.680) mIU/L Free T4 (0.78-2.19) ng/dL Disposition Clinical Impression: Palpitations Disposition: HOME SELF-CARE Condition: Stable Instructions (If sedation given, give patient instructions): Heart Palpitations (DC) Is patient prescribed a controlled substance at d/c from ED?: No Referrals: Isaiah Calderon MD [Primary Care Provider] - 1-2 days Time of Disposition: 22:10
--- NOTE | 2022-10-08 20:16 | XR ---
EXAMINATION TYPE: XR chest 2V DATE OF EXAM: 10/08/2022 COMPARISON: 03/15/2019 HISTORY: Chest pain TECHNIQUE: FINDINGS: heart and mediastinum are normal. Lungs are clear. Diaphragm is normal. Bony thorax appears normal. T here are chest leads. IMPRESSION: Normal chest. No change.
[2022-10-08 20:20] LABS: ALT 31 U/L (4-34); AST 25 U/L (14-36); African American GFR (CKD) >90 (>60 ml/min/1.73 sqM); Albumin 4.2 g/dL (3.5-5.0); Alkaline Phosphatase 108 U/L (38-126); Anion Gap 10 mmol/L; Blood Urea Nitrogen 11 mg/dL (7-17); Calcium 9.8 mg/dL (8.4-10.2); Carbon Dioxide 24 mmol/L (22-30); Chloride 105 mmol/L (98-107); Glucose 139 mg/dL (74-99); Lipase 85 U/L (23-300); Magnesium 1.8 mg/dL (1.6-2.3); Non-African American GFR(CKD) >90 (>60 ml/min/1.73 sqM); Potassium 4.2 mmol/L (3.5-5.1); Sodium 139 mmol/L (137-145); Total Bilirubin 0.5 mg/dL (0.2-1.3); Total Protein 7.2 g/dL (6.3-8.2)
[2022-10-08 20:23] LABS: INR 0.9 (<1.2); Prothrombin Time 9.7 sec (9.0-12.0)
[2022-10-08 20:30] LABS: Partial Thromboplastin Time 21.4 sec (22.0-30.0)
[2022-10-08 20:35] LABS: Basophils # (A) 0.1 k/uL (0-0.2); Basophils % (A) 1 %; Eosinophils # (A) 0.2 k/uL (0-0.7); Eosinophils % (A) 2 %; HGB 14.8 gm/dL (11.4-16.0); Lymphocytes # (A) 2.2 k/uL (1.0-4.8); Lymphocytes % (A) 28 %; MCH 29.1 pg (25.0-35.0); MCHC 34.4 g/dL (31.0-37.0); MCV 84.5 fL (80.0-100.0); Mean Platelet Volume 8.1; Monocytes # (A) 0.4 k/uL (0-1.0); Monocytes % (A) 6 %; Neutrophils # (A) 4.8 k/uL (1.3-7.7); Neutrophils % (A) 62 %; Platelet Count 239 k/uL (150-450); RBC 5.09 m/uL (3.80-5.40); RDW 12.8 % (11.5-15.5); WBC 7.6 k/uL (3.8-10.6)
[2022-10-08 22:23] LABS: T4, Free (Free Thyroxine) 1.35 ng/dL (0.78-2.19)
[2022-10-08 22:24] VITALS: BP 152/83; PULSE 81
== END 2022-10-08 22:42 | disposition home or self-care (01) ==
LOC: EC 19:15
DX: R00.2 Palpitations (principal); F41.9 Anxiety disorder, unspecified; F32.A Depression, unspecified; F17.290 Nicotine dependence, other tobacco product, uncomplicated; E78.5 Hyperlipidemia, unspecified; Z79.82 Long term (current) use of aspirin; Z79.899 Other long term (current) drug therapy
CPT/HCPCS: 36415; 71046; 80053; 83690; 83735; 84439; 84443; 84484; 85025; 85610; 85730; 93005; 99285

== ENCOUNTER → 2023-08-15 | Outpatient (CLI) | payer BC ==
[2023-08-15 15:12] LABS: Basophils # (A) 0.07 X 10*3/uL (0.00-0.10); Basophils % (A) 1.2 %; Eosinophils # (A) 0.19 X 10*3/uL (0.04-0.35); Eosinophils % (A) 3.4 %; HCT 46.3 % (37.2-46.3); HGB 15.2 g/dL (12.0-15.0); Lymphocytes # (A) 2.16 X 10*3/uL (0.90-5.00); Lymphocytes % (A) 38.3 %; MCHC 32.8 g/dL (32.0-37.0); MCV 88.2 FL (80.0-97.0); Mean Platelet Volume 10.7 FL (9.5-12.2); Monocytes % (A) 7.1 %; NRBC Per 100 WBC 0 X 10*3/uL (0.00-0.01); Neutrophils # (A) 2.81 X 10*3/uL (1.80-7.70); Neutrophils % (A) 49.8 %; Platelet Count 281 X 10*3/uL (140-440); RBC 5.25 X 10*6/uL (4.10-5.20); RDW 12.7 % (11.5-14.5); WBC 5.64 X 10*3/uL (4.50-10.00)
== END | disposition home or self-care (01) ==
LOC: LABWHC1 11:02
PROVIDERS: ATTEND Obstetrics & Gynecology
DX: Z01.812 Encounter for preprocedural laboratory examination (principal); N95.0 Postmenopausal bleeding; N88.2 Stricture and stenosis of cervix uteri; R93.89 Abnormal findings on diagnostic imaging of other specified body structures
CPT/HCPCS: 36415; 85025

== ENCOUNTER 2023-08-16 07:36 | Day surgery (SDC) | payer BC ==
--- NOTE | 2023-08-15 09:49 | HP ---
HISTORY AND PHYSICAL DATE OF SCHEDULED SURGERY: 08/16/2023. HISTORY OF PRESENT ILLNESS: The patient is a 53-year-old 0, para 0, who presents to the office with complaints of postmenopausal bleeding. She had been amenorrheic since 2020 and then had several days of light spotting, mostly noted when wiping at the toilet. Attempted endometrial biopsy was unsuccessful secondary to cervical stenosis and she underwent a pelvic ultrasound which demonstrated a thickened endometrial stripe at 12 mm with a probable endometrial polyp. She was counseled regarding options and recommendations were made for hysteroscopy with D and C and probable polypectomy. PAST MEDICAL HISTORY: Significant for asthma, diabetes, Graves disease, hyperlipidemia. PAST SURGICAL HISTORY: Significant for cholecystectomy, coronary stent placement, and tubal ligation. She has not had any anesthetic concerns reportedly. OBSTETRICAL HISTORY: 0, para 0, with tubal ligation in place for contraception. GYNECOLOGIC HISTORY: Unremarkable with no history of any infections to include STDs. FAMILY HISTORY: Noncontributory. SOCIAL HISTORY: The patient is , and is a nonsmoker but does apparently vape. She denies any significant alcohol or any other social concerns. CURRENT MEDICATIONS: Include; 1. Metformin 500 mg twice daily. 2. Mounjaro weekly. 3. Omeprazole 20 mg daily. 4. Inhaler as needed. 5. Veozah once daily. ALLERGIES: Aspirin causes hives and shortness of breath and Estroven caused panic attacks. REVIEW OF SYSTEMS: Confined to history of present illness. PHYSICAL EXAMINATION: VITAL SIGNS: Stable and the patient is afebrile. GENERAL: This is a well-developed, well-nourished white female, in no acute distress. HEART: Has regular rhythm and rate without murmur. LUNGS: Clear to auscultation bilaterally in all olivas. ABDOMEN: Nondistended, has normoactive bowel sounds, soft, nontender, without any palpable masses, hepatosplenomegaly, or hernias. EXTREMITIES: Without any cyanosis, clubbing, or edema and are nontender to palpation bilaterally. PELVIC: Examination demonstrates normal external genitalia and BUS with normal vaginal mucosa and cervix. There is no cervical motion tenderness. Uterus is mid plane, atrophic in size, mobile, nontender, normal in shape. The adnexa are normal, nontender without mass bilaterally. ASSESSMENT AND PLAN: 1. Postmenopausal bleeding with thickened endometrial stripe and possible endometrial polyp. We will plan for diagnostic hysteroscopy with D and C and probable endometrial polypectomy. The risks and complications of the procedure been thoroughly discussed including risk of bleeding, bleeding requiring transfusion, infection, and injury to local structures to specifically include the uterine perforation and possible Asherman syndrome. She has understood all this and agreed to proceed. MMODL / IJN: [id number] /
[~2023-08-16 07:36] MED LIST: DEXAMETHASONE SOD PHOSPHATE 4 MG/ML 1 ML VIAL IV ONE; HYDROmorphone 0.5 MG/0.5 ML SYRINGE IVP PRN; LACTATED RINGERS 1,000 ML IV SCH; LIDOCAINE 1% (10MG/ML) FOR IV START INTRADERMA PRN; MIDAZOLAM 2 MG/2 ML VIAL IV PRN; ONDANSETRON 4 MG/2 ML VIAL IVP ONE; Pre Op ABX Message 1 EACH MISC MISCELLANE ONE
[2023-08-16 08:11] VITALS: RESP 16; TEMP 97
[2023-08-16 08:17] LABS: Glucose,Whole Blood 99 mg/dL (70-110)
[2023-08-16] MEDS ORDERED: ONDANSETRON 4 MG/2 ML VIAL IVP ONE (08:19)
[2023-08-16] MEDS ORDERED: DEXAMETHASONE SOD PHOSPHATE 4 MG/ML 1 ML VIAL IVP ONE (08:20)
[2023-08-16] MEDS ORDERED: fentaNYL (PF) 50 MCG/ML 2 ML AMP ONE (09:08)
[2023-08-16] MEDS ORDERED: PROPOFOL 10 MG/ML 20 ML VIAL IV ONE (09:08)
[2023-08-16] MEDS ORDERED: MIDAZOLAM 2 MG/2 ML VIAL ONE (09:08)
[2023-08-16] MEDS ORDERED: SORBITOL 3% IRRIGATION 3,000 ML IRRIGATION ONE (09:24)
[2023-08-16] MEDS ORDERED: ONDANSETRON 4 MG/2 ML VIAL IVP PRN (09:39)
[2023-08-16] MEDS ORDERED: diphenhydrAMINE 50 MG/ML 1 ML VIAL IVP PRN (09:39)
[2023-08-16] MEDS ORDERED: KETOROLAC 15 MG/ML 1 ML VIAL IVP PRN (09:39)
[2023-08-16] MEDS ORDERED: SIMETHICONE 80 MG CHEWABLE PO PRN (09:39)
[2023-08-16] MEDS ORDERED: METOCLOPRAMIDE 5 MG/ML 2 ML VIAL IVP PRN (09:39)
[2023-08-16] MEDS ORDERED: Acetaminophen-Codeine 300-30mg TAB PO PRN ×2 (09:39)
[2023-08-16] MEDS ORDERED: LACTATED RINGERS 1,000 ML IV SCH (09:45)
--- NOTE | 2023-08-16 09:45 | P.OP ---
Date of Procedure: 08/16/23 Preoperative Diagnosis: #1. Postmenopausal bleeding #2. Presumptive endometrial polyp Postoperative Diagnosis: Same Procedure(s) Performed: #1. Diagnostic hysteroscopy #2. Endometrial polypectomy #3. Endometrial curettage Anesthesia: other (Gen. by LMA) Surgeon: Damion Felix Estimated Blood Loss (ml): 5 IV fluids (ml): 500 Urine output (ml): 10 Pathology: other (Endometrial curettings with fragmented endometrial polyp) Condition: stable Disposition: PACU Operative Findings: Preoperative pelvic examination demonstrated an atrophic midplane normal shaped uterus. Adnexa were normal bilaterally and nonpalpable. The cervical os was somewhat stenotic broken down with the smallest dilator. Uterus sounded to 7- 1/2 cm. Using the hysteroscope, the entire endometrial cavity appeared completely atrophic aside from a single polyp occupying the fundal right hand side of the uterus. The bilateral tubal ostia were seen. The polyp was removed in several pieces using the polyp forceps. Curettage produced the typical gri tty texture. The patient is a borderline candidate for vaginal hysterectomy should become necessary. Description of Procedure: The patient was prepped and draped in usual fashion after general anesthesia was administered by the anesthesiologist. A weighted speculum was placed and the anterior lip of the cervix grasped with single-tooth tenaculum. The bladder was catheterized for 10 mL of clear anel urine. The smallest cervical dilator was utilized to break down the cervical stenosis that was noted. Following that, the uterine sound could be introduced and was noted to go to a depth of 7.5 cm. Serial dilation was carried out to admit the diagnostic hysteroscope. The cavity was distended with sorbitol and the findings are as noted above with generalized atrophy, the bilateral tubal ostia were seen, and a moderately sized polyp emanating from the right side of the fundal portion of the uterus. It was benign in appearance. After adequate hysteroscopy had been carried out, the scope was set aside and a polyp forceps introduced. The polyp was grasped relatively easily but removed in several pieces. After it was felt to have gotten the main body of the polyp removed, a small sharp curette was introduced and thorough and circumferential curettage carried out onto a Telfa in the vagina. Particular attention was paid to the area where the base of the polyp would've been noted. No significant tissue was produced. Allis her mentation was then removed. There was one point of bleeding from tenaculum site which was made hemostatic with pressure. Assessment a blood loss for the case was approximate 5 mL or less. There were no complications. All sponge, instrument, and needle counts were correct. The patient tolerated the procedure well and proceeded to the recovery room in stable condition.
[2023-08-16 10:38] LABS: Glucose,Whole Blood 126 mg/dL (70-110)
[2023-08-16 10:42] VITALS: BP 120/61; PULSE 59
[2023-08-17] MEDS ORDERED: ACETAMINOPHEN TAB 325 MG TAB PO PRN (09:39)
== END 2023-08-16 10:52 | disposition home or self-care (01) ==
LOC: OR 07:36
PROVIDERS: ATTEND Obstetrics & Gynecology
DX: N84.0 Polyp of corpus uteri (principal); N95.0 Postmenopausal bleeding; J45.909 Unspecified asthma, uncomplicated; E11.9 Type 2 diabetes mellitus without complications; E05.00 Thyrotoxicosis with diffuse goiter without thyrotoxic crisis or storm; E78.5 Hyperlipidemia, unspecified; Z90.49 Acquired absence of other specified parts of digestive tract; Z95.5 Presence of coronary angioplasty implant and graft; Z98.51 Tubal ligation status; Z79.84 Long term (current) use of oral hypoglycemic drugs; Z79.899 Other long term (current) drug therapy; Z88.6 Allergy status to analgesic agent
CPT/HCPCS: 88305; 58558; J2250; J1100; J2405; J3010; J2704

== ENCOUNTER 2023-12-22 20:42 | Observation (INO) | payer BC ==
[2023-12-22 20:47] VITALS: TEMP 98.4
[2023-12-22] MEDS ORDERED: diphenhydrAMINE 50 MG/ML 1 ML VIAL IVP PRN (21:03)
--- NOTE | 2023-12-22 21:08 | ED ---
General Adult HPI - General Chief complaint: Chest Pain Stated complaint: Chest pain Time Seen by Provider: 12/22/23 20:56 Source: patient, RN notes reviewed, old records reviewed Mode of arrival: ambulatory Limitations: no limitations - History of Present Illness Initial comments: Patient is a 53-year-old female presents emergency department complaining of chest pain. States she was doing a lot of work today outside and at home. Describes the chest pain as a tightness that is substernal and radiates to both shoulders and down the right arm. States this is similar to when she had an AK previously. Does have a history of a cardiac stent in the right RCA. Is relatively noncompliant with medications. Does not take aspirin daily. Has not followed up with cardiology Dr. Miller. Has a history of thyroid disease. Also is borderline diabetic on Mounjaro. Presents for further evaluation at this time. Denies any shortness of breath. Denies fevers, chills, cough. Pain does not seem to be related to movement. No known palliative or provocative factors. Attempted to take nitro at home with minimal improvement if any. Pain began at approximately 3 PM and has progressively worsened throughout the evening. Denies any nausea or vomiting. Denies any lightheadedness. Denies any diaphoretic episodes. - Related Data Home Medications Medication Instructions Recorded Confirmed Fezolinetant [Veozah] 45 mg PO DAILY 08/12/23 08/16/23 Tirzepatide [Mounjaro] 5 mg SQ WE 08/12/23 08/16/23 Allergies Allergy/AdvReac Type Severity Reaction Status Date / Time aspirin Allergy Unknown HIVES, HOT Verified 08/16/23 08:07 Review of Systems ROS Statement: Those systems with pertinent positive or pertinent negative responses have been documented in the HPI. Review of Systems: CONST: Denies fever EYES: Denies blurry vision ENT: Denies nasal congestion C/V: Endorses chest pain RESP: Denies shortness of breath GI: Denies abdominal pain : Denies dysuria SKIN: Denies rash. MSK: Denies joint pain. NEURO: Denies headache ROS Other: All systems not noted in ROS Statement are negative. Past Medical History Past Medical History: Myocardial Infarction (AK), Thyroid Disorder Additional Past Medical History / Comment(s): GRAVES DISEASE., History of Any Multi-Drug Resistant Organisms: None Reported Past Surgical History: Cholecystectomy, Heart Catheterization With Stent, Orthopedic Surgery, Tubal Ligation Additional Past Surgical History / Comment(s): RIGHT LEG FX AND ANKLE SURGERY WITH HARDWARE AND REMOVAL OF HARDWARE. sinus surgery Past Anesthesia/Blood Transfusion Reactions: Motion Sickness, No Reported Reaction Additional Past Anesthesia/Blood Transfusion Reaction / Comment(s): if get too much has a hard time waking up. with gallbladder oxygen down the tube" burned her throat and lungs" Date of Last Stent Placement:: unk Past Psychological History: Anxiety, Depression Smoking Status: Vaper - Past Family History Mother History Unknown: Yes Family Medical History: No Reported History Father Family Medical History: Hypertension General Exam - General Exam Comments Initial Comments: General: Appears in mild distress and anxious secondary to chest pain. HEAD: Normal with no signs of head trauma. EYES: PERRLA, EOMI, conjunctiva normal, no discharge. ENT: Hearing grossly intact, normal oropharynx. RESPIRATORY: Clear breath sounds bilaterally. No wheezes, rales, or rhonchi. C/V: Regular rate and rhythm. S1 and S2 auscultated, no edema, peripheral pulses 2+ and intact throughout. Chest pain nonreproducible on palpation. ABD: Abd is soft, nontender, nondistended EXT: Normal range of motion, no obvious deformity SKIN: No rashes or lesions observed on exposed skin. NEURO: Alert and oriented x 4. Limitations: no limitations Course Vital Signs 12/22/23 12/22/23 12/22/23 20:43 22:28 22:39 Temperature 98.4 F Pulse Rate 68 79 Respiratory 20 18 Rate Blood Pressure 138/75 104/78 117/83 O2 Sat by Pulse 99 97 Oximetry Medical Decision Making - Medical Decision Making Was pt. sent in by a medical professional or institution (, PA, HAIR DRESSER, urgent care, hospital, or assisted...) When possible be specific @ -No Did you speak to anyone other than the patient for history (EMS, parent, family, police, friend...)? What history was obtained from this source @ -No Did you review nursing and triage notes (agree or disagree)? Why? @ -I reviewed and agree with nursing and triage notes Were old charts reviewed (outside hosp., previous admission, EMS record, old EKG, old radiological studies, urgent care reports/EKG's, assisted records)? Report findings @ -Old charts reviewed from September 2022. This includes EKG. Patient had RCA stent placed in March [address] Miller. Troponin back in September 2022 was undetectable. Differential Diagnosis (chest pain, altered mental status, abdominal pain women, abdominal pain men, vaginal bleeding, weakness, fever, dyspnea, syncope, headache, dizziness, GI bleed, back pain, seizure, CVA, palpatations, mental health, musculoskeletal)? @ -Differential Chest Pain: Stable Angina, Unstable Angina, STEMI, NSTEMI Aortic Dissection, Pneumothorax, Musculoskeletal, Esophageal Spasm GERD, Cholecystitis, Pancreatitis, Zoster, this is not meant to be an all-inclusive list. EKG interpreted by me (3pts min.). @ -As above X-rays interpreted by me (1pt min.). @ -X-ray reveals no obvious acute cardiopulmonary process. CT interpreted by me (1pt min.). @ -None done U/S interpreted by me (1pt. min.). @ -None done What testing was considered but not performed or refused? (CT, X-rays, U/S, labs)? Why? @ -None What meds were considered but not given or refused? Why? @ -None Did you discuss the management of the patient with other professionals (professionals i.e. , PA, HAIR DRESSER, lab, RT, psych nurse, healthcare social worker, data center manager, teacher, biological technical officer, welfare case worker)? Give summary @ -No Was smoking cessation discussed for >3mins.? @ -No Was critical care preformed (if so, how long)? @ -No Were there social determinants of health that impacted care today? How? (Homelessness, low income, unemployed, alcoholism, drug addiction, transportation, low edu. Level, literacy, decrease access to med. care, halfway, rehab)? @ -No Was there de-escalation of care discussed even if they declined (Discuss DNR or withdrawal of care, Hospice)? DNR status @ -No What co-morbidities impacted this encounter? (DM, HTN, Smoking, COPD, CAD, Cancer, CVA, ARF, Chemo, Hep., AIDS, mental health diagnosis, sleep apnea, morbid obesity)? @ -CAD with prior RCA stent Was patient admitted / discharged? Hospital course, mention meds given and route, prescriptions, significant lab abnormalities, going to OR and other pertinent info. @ -Patient presents emergency department with chest pain. History of AK and RCA stent in 2019. States pain is similar to when she required the stent. Vital signs within acceptable limits. We will obtain cardiac workup. Patient be given aspirin. States she did have allergic reaction in the past but does take 81 mg of aspirin daily at home without reaction. Benadryl ordered just in case she does break out in hives which was her previous reaction. She will receive 324 mg of aspirin in addition to additional nitro glycerin tablets. P atient in agreement this plan. EKG shows chronic T wave inversion in lead III as well as some T wave inversions/flattening in the precordial leads which is more new. No obvious ST segment abnormalities at this time.Chest x-ray shows no obvious acute cardiopulmonary process. Laboratory studies remarkable for undetectable troponin. On reevaluation, following multiple nitro tablets patient's pain is improved to approximately 1 out of 10. Nitropaste was applied. I discussed her negative workup. I would like to admit her as her heart score is moderate. She was in agreement this plan. She will be admitted to a telemetry bed. Echo ordered. Cardiology consulted. I spoke with the admitting team, Dr. Pierce who accepted the admission. Undiagnosed new problem with uncertain prognosis? @ -No Drug Therapy requiring intensive monitoring for toxicity (Heparin, Nitro, Insulin, Cardizem)? @ -No Were any procedures done? @ -No Diagnosis/symptom? @ -Chest pain Acute, or Chronic, or Acute on Chronic? @ -Acute Uncomplicated (without systemic symptoms) or Complicated (systemic symptoms)? @ -Complicated Side effects of treatment? @ -None Exacerbation, Progression, or Severe Exacerbation] @ -No Poses a threat to life or bodily function? @ -Yes - Lab Data Result diagrams: 12/22/23 21:32 12/22/23 21:32 Lab Results 12/22/23 12/22/23 12/22/23 Range/Units 21:32 21:32 21:32 WBC 7.1 (3.8-10.6) k/uL RBC 4.94 (3.80-5.40) m/uL Hgb 14.5 (11.4-16.0) gm/dL Hct 43.9 (34.0-46.0) % MCV 89.0 (80.0-100.0) fL MCH 29.3 (25.0-35.0) pg MCHC 32.9 (31.0-37.0) g/dL RDW 12.8 (11.5-15.5) % Plt Count 260 (150-450) k/uL MPV 7.6 Neutrophils % 49 % Lymphocytes % 41 % Monocytes % 5 % Eosinophils % 2 % Basophils % 1 % Neutrophils # 3.5 (1.3-7.7) k/uL Lymphocytes # 2.9 (1.0-4.8) k/uL Monocytes # 0.4 (0-1.0) k/uL Eosinophils # 0.1 (0-0.7) k/uL Basophils # 0.1 (0-0.2) k/uL PT 10.1 (10.0-12.5) sec INR 0.9 (<1.2) APTT 22.4 (22.0-30.0) sec Sodium 140 (137-145) mmol/L Potassium 4.0 (3.5-5.1) mmol/L Chloride 111 H (98-107) mmol/L Carbon Dioxide 21 L (22-30) mmol/L Anion Gap 8 mmol/L BUN 12 (7-17) mg/dL Creatinine 0.69 (0.52-1.04) mg/dL Est GFR (CKD-EPI)AfAm >90 (>60 ml/min/1.73 sqM) Est GFR (CKD-EPI)NonAf >90 (>60 ml/min/1.73 sqM) Glucose 94 (74-99) mg/dL Calcium 9.6 (8.4-10.2) mg/dL Magnesium 2.0 (1.6-2.3) mg/dL Total Bilirubin 0.5 (0.2-1.3) mg/dL AST 19 (14-36) U/L ALT 15 (4-34) U/L Alkaline Phosphatase 85 (38-126) U/L Troponin I (0.000-0.034) ng/mL NT-Pro-B Natriuret Pep 42 pg/mL Total Protein 7.0 (6.3-8.2) g/dL Albumin 4.5 (3.5-5.0) g/dL Lipase 126 (23-300) U/L 12/22/23 Range/Units 21:32 WBC (3.8-10.6) k/uL RBC (3.80-5.40) m/uL Hgb (11.4-16.0) gm/dL Hct (34.0-46.0) % MCV (80.0-100.0) fL MCH (25.0-35.0) pg MCHC (31.0-37.0) g/dL RDW (11.5-15.5) % Plt Count (150-450) k/uL MPV Neutrophils % % Lymphocytes % % Monocytes % % Eosinophils % % Basophils % % Neutrophils # (1.3-7.7) k/uL Lymphocytes # (1.0-4.8) k/uL Monocytes # (0-1.0) k/uL Eosinophils # (0-0.7) k/uL Basophils # (0-0.2) k/uL PT (10.0-12.5) sec INR (<1.2) APTT (22.0-30.0) sec Sodium (137-145) mmol/L Potassium (3.5-5.1) mmol/L Chloride (98-107) mmol/L Carbon Dioxide (22-30) mmol/L Anion Gap mmol/L BUN (7-17) mg/dL Creatinine (0.52-1.04) mg/dL Est GFR (CKD-EPI)AfAm (>60 ml/min/1.73 sqM) Est GFR (CKD-EPI)NonAf (>60 ml/min/1.73 sqM) Glucose (74-99) mg/dL Calcium (8.4-10.2) mg/dL Magnesium (1.6-2.3) mg/dL Total Bilirubin (0.2-1.3) mg/dL AST (14-36) U/L ALT (4-34) U/L Alkaline Phosphatase (38-126) U/L Troponin I <0.012 (0.000-0.034) ng/mL NT-Pro-B Natriuret Pep pg/mL Total Protein (6.3-8.2) g/dL Albumin (3.5-5.0) g/dL Lipase (23-300) U/L - EKG Data -: EKG Interpreted by Me EKG Comments: 12-lead Electrocardiogram Interpretation Note EKG was reviewed and interpreted by myself. 12-lead ECG performed at 2106 is interpreted by me as revealing sinus bradycardia at a rate of 56 beats per minute. [place] is normal. MA interval is 185 ms, QRS duration is 94 ms, QTc is 385 ms.. Chronic T wave inversion in lead III. Or acute T wave inversions in the precordial leads. This is a new change from prior EKG in 2022. No obvious ST segment abnormalities at this time.. R wave progression across the precordium was related. New T wave inversions in the precordial leads which could be indicative of ischemia. Disposition Clinical Impression: Chest pain Disposition: ADMITTED IP TO THIS HOSP Condition: Stable Time of Disposition: 23:09
[2023-12-22] MEDS: ASPIRIN 81 MG PO STA (22:20)
[2023-12-22] MEDS: SODIUM CHLORIDE 0.9% 1,000 ML IV STA (22:21)
[2023-12-22] MEDS: NITROGLYCERIN SL TABS 0.4 MG TAB SUBLINGUAL STA (22:21)
[2023-12-22 22:28] VITALS: RESP 18
--- NOTE | 2023-12-22 22:36 | XR ---
EXAMINATION TYPE: XR chest 2V DATE OF EXAM: 12/22/2023 COMPARISON: Chest x-ray October 08, 2022 HISTORY: Chest pain. TECHNIQUE: Frontal and lateral views of the chest are obtained. FINDINGS: Overlying EKG leads redemonstrated. There is no focal air space opacity, pleural effusion, or pneumothorax seen. The cardiac silhouette size is stable and within normal limits. The osseous structures are intact. IMPRESSION: No acute process. No significant change from most recent prior.
[2023-12-22 22:38] LABS: Basophils # (A) 0.1 k/uL (0-0.2); Basophils % (A) 1 %; Eosinophils # (A) 0.1 k/uL (0-0.7); Eosinophils % (A) 2 %; HCT 43.9 % (34.0-46.0); HGB 14.5 gm/dL (11.4-16.0); Lymphocytes # (A) 2.9 k/uL (1.0-4.8); Lymphocytes % (A) 41 %; MCH 29.3 pg (25.0-35.0); MCHC 32.9 g/dL (31.0-37.0); Mean Platelet Volume 7.6; Monocytes # (A) 0.4 k/uL (0-1.0); Monocytes % (A) 5 %; Neutrophils # (A) 3.5 k/uL (1.3-7.7); Neutrophils % (A) 49 %; Platelet Count 260 k/uL (150-450); RBC 4.94 m/uL (3.80-5.40); RDW 12.8 % (11.5-15.5); WBC 7.1 k/uL (3.8-10.6)
[2023-12-22 22:39] LABS: INR 0.9 (<1.2); Partial Thromboplastin Time 22.4 sec (22.0-30.0); Prothrombin Time 10.1 sec (10.0-12.5)
[2023-12-22 22:40] LABS: ALT 15 U/L (4-34); AST 19 U/L (14-36); African American GFR (CKD) >90 (>60 ml/min/1.73 sqM); Albumin 4.5 g/dL (3.5-5.0); Alkaline Phosphatase 85 U/L (38-126); Anion Gap 8 mmol/L; Blood Urea Nitrogen 12 mg/dL (7-17); Calcium 9.6 mg/dL (8.4-10.2); Carbon Dioxide 21 mmol/L (22-30); Chloride 111 mmol/L (98-107); Glucose 94 mg/dL (74-99); Lipase 126 U/L (23-300); Non-African American GFR(CKD) >90 (>60 ml/min/1.73 sqM); Sodium 140 mmol/L (137-145); Total Bilirubin 0.5 mg/dL (0.2-1.3)
[2023-12-22 22:48] LABS: NT-Pro-B-Type Natriuretic Pept 42 pg/mL
[2023-12-22] MEDS ORDERED: NALOXONE 0.4 MG/ML 1 ML VIAL IV PRN (23:07)
[2023-12-22] MEDS ORDERED: ONDANSETRON 4 MG/2 ML VIAL IVP PRN (23:07)
[2023-12-22] MEDS: NITROGLYCERIN OINT 1 INCH/GM PACKET TOPICAL SCH (23:24)
[2023-12-22] MEDS: HEPARIN SODIUM,PORCINE 5,000 UNIT/ML 1 ML VIAL SQ SCH (23:24)
[2023-12-23 01:21] VITALS: BP 120/79; PULSE 62
[2023-12-23] MEDS ORDERED: MAG HYDROX/AL HYDROX/SIMETH 30 ML CUP PO PRN (01:22)
--- NOTE | 2023-12-23 01:34 | P.HPIM ---
History of Present Illness H&P Date: 12/22/23 Chief Complaint: Chest pain 53-year-old female with history of coronary artery stents, prediabetes mellitus Patient coming in for evaluation of chest pain she admits that today she was at the park where she was lifting heavy objects over her head suddenly she felt some tightening across her mid chest radiating to the throat rated at 6 out of 10 in severity not associated with any dizziness lightheadedness nausea vomiting palpitations or shortness of breath it was resolved when she continued her work when she went home she felt she got another episode of the same pain this time she was able to take some old nitro pills which helped with the pain however she grew suspicious and concerned and decided to come to the hospital for evaluation tonight Patient denies any recent travel or hospital stay she denies any history of blood clots At time of my evaluation patient seems to be chest pain-free however complaining about how uncomfortable the bed as just sitting next to the bed at this time Patient admits to nicotine vaping denies any illicit drugs or heavy alcohol review of systems Pertinent positives as noted in HPI. All other systems were reviewed and are negative on exam Constitutional: No acute distress, conversant, pleasant Eyes: Anicteric sclerae, moist conjunctiva, Pupils equal round reactive to light ENMT: NC/AT Oropharynx clear, no erythema, or exudates Neck: Supple, no masses, or JVD No carotid bruits No thyromegaly Lungs: Clear to auscultation Clear to percussion Normal respiratory effort, no accessory muscle use Cardiovascular: Heart regular in rate and rhythm, No murmurs, gallops, or rubs No peripheral edema Abdominal: Soft Nontender, no guarding, rebound or rigidity Abdomen moving with respiration Normoactive bowel sounds Extremities: No digital cyanosis No clubbing Pedal pulses intact and symmetrical Radial pulses intact and symmetrical No calf tenderness Psychiatric: Alert and oriented to person, place and time Appropriate affect fair judgement Neuro Muscles Strength 5/5 in all 4 extremities Sensation to light touch grossly present throughout Cranial nerves II-XII grossly intact Past Medical History Past Medical History: Myocardial Infarction ([place]), Thyroid Disorder Additional Past Medical History / Comment(s): GRAVES DISEASE., History of Any Multi-Drug Resistant Organisms: None Reported Past Surgical History: Cholecystectomy, Heart Catheterization With Stent, Orthopedic Surgery, Tubal Ligation Additional Past Surgical History / Comment(s): RIGHT LEG FX AND ANKLE SURGERY WITH HARDWARE AND REMOVAL OF HARDWARE. sinus surgery Past Anesthesia/Blood Transfusion Reactions: Motion Sickness, No Reported Reaction Additional Past Anesthesia/Blood Transfusion Reaction / Comment(s): if get too much has a hard time waking up. with gallbladder oxygen down the tube" burned her throat and lungs" Date of Last Stent Placement:: unk Past Psychological History: Anxiety, Depression Smoking Status: Vaper - Past Family History Mother History Unknown: Yes Family Medical History: No Reported History Father Family Medical History: Hypertension Medications and Allergies Home Medications Medication Instructions Recorded Confirmed Type Fezolinetant [Veozah] 45 mg PO DAILY 08/12/23 08/16/23 History Tirzepatide [Mounjaro] 5 mg SQ WE 08/12/23 08/16/23 History Allergies Allergy/AdvReac Type Severity Reaction Status Date / Time aspirin Allergy Unknown HIVES, HOT Verified 08/16/23 08:07 Physical Exam Vitals: Vital Signs Temp Pulse Resp BP Pulse Ox 12/22/23 22:39 117/83 12/22/23 22:28 79 18 104/78 97 12/22/23 20:43 98.4 F 68 20 138/75 99 Intake and Output 12/22/23 12/22/23 12/23/23 14:59 22:59 06:59 Other: Weight 92.533 kg Results CBC & Chem 7: 12/22/23 21:32 12/22/23 21:32 Labs: Abnormal Lab Results - Last 24 Hours (Table) 12/22/23 Range/Units 21:32 Chloride 111 H (98-107) mmol/L Carbon Dioxide 21 L (22-30) mmol/L Assessment and Plan Assessment: 53-year-old female with history of coronary artery disease and prediabetes mellitus coming in for evaluation of chest pain post exertion I discussed case w ith ED doctor and accepted the admission for chest pain rule out acute coronary syndrome With anticipated length of stay less than 2 midnights Atypical chest pain rule out ACS Troponins negative continue to trend No acute ST changes on EKG Continue with aspirin 81 mg p.o. daily Continue with statin Cardiac monitoring Monitor vital signs Cardiology consult EKG sinus bradycardia no acute ST changes Blood work showing hemoglobin 14.5 white count 7.1 Sodium 140 potassium 4 BUN 12 creatinine 0.69 troponin negative Full code DVT prophylaxis heparin subcu 3 times daily
[2023-12-23] MEDS: FAMOTIDINE 20 MG TAB PO SCH (01:56)
[2023-12-23 04:17] LABS: Basophils # (A) 0.1 k/uL (0-0.2); Basophils % (A) 1 %; Eosinophils # (A) 0.1 k/uL (0-0.7); Eosinophils % (A) 2 %; HCT 42.9 % (34.0-46.0); HGB 13.9 gm/dL (11.4-16.0); Lymphocytes # (A) 3.1 k/uL (1.0-4.8); Lymphocytes % (A) 49 %; MCH 29.4 pg (25.0-35.0); MCHC 32.4 g/dL (31.0-37.0); MCV 90.6 fL (80.0-100.0); Mean Platelet Volume 8.2; Monocytes # (A) 0.3 k/uL (0-1.0); Monocytes % (A) 5 %; Neutrophils # (A) 2.5 k/uL (1.3-7.7); Neutrophils % (A) 41 %; Platelet Count 263 k/uL (150-450); RBC 4.74 m/uL (3.80-5.40); RDW 12.8 % (11.5-15.5); WBC 6.2 k/uL (3.8-10.6)
[2023-12-23 04:36] LABS: ALT 14 U/L (4-34); African American GFR (CKD) >90 (>60 ml/min/1.73 sqM); Albumin 4.4 g/dL (3.5-5.0); Anion Gap 7 mmol/L; Blood Urea Nitrogen 12 mg/dL (7-17); Calcium 9.2 mg/dL (8.4-10.2); Carbon Dioxide 20 mmol/L (22-30); Chloride 113 mmol/L (98-107); Glucose 81 mg/dL (74-99); Non-African American GFR(CKD) >90 (>60 ml/min/1.73 sqM); Sodium 140 mmol/L (137-145); Total Bilirubin 0.8 mg/dL (0.2-1.3); Total Protein 6.9 g/dL (6.3-8.2)
[2023-12-23 05:11] LABS: AST 22 U/L (14-36); Alkaline Phosphatase 67 U/L (38-126)
--- NOTE | 2023-12-23 07:30 | P.DS ---
Providers Date of admission: 12/22/23 23:08 Expected date of discharge: 12/23/23 Attending physician: Bill Pierce MD Consults: 12/22/23 23:07 Consult Physician Routine Consulting Provider: [facility] Consult Reason/Comments: chest pain Do you want consulting provider notified?: Yes Primary care physician: Arie Briones [facility] Course: Patient left AMA this morning without being seen. Patient Condition at Discharge: Undetermined Plan - Discharge Summary New Discharge Prescriptions: No Action Tirzepatide [Mounjaro] 5 mg SQ WE Fezolinetant [Veozah] 45 mg PO DAILY Discharge Medication List Fezolinetant [Veozah] 45 mg PO DAILY 08/12/23 [History] Tirzepatide [Mounjaro] 5 mg SQ WE 08/12/23 [History] Follow up Appointment(s)/Referral(s): Arie Bird MD [Primary Care Provider] - 1-2 days Discharge Disposition: LEFT AGAINST MEDICAL ADVICE
== END 2023-12-23 05:21 | disposition left against medical advice (07) ==
LOC: EC 20:42 → 6NMEDSUR 23:08
PROVIDERS: ADMIT Internal Medicine; ATTEND Internal Medicine
DX: R07.89 Other chest pain (principal); R07.2 Precordial pain; I25.10 Atherosclerotic heart disease of native coronary artery without angina pectoris; R73.03 Prediabetes; R00.1 Bradycardia, unspecified; M25.512 Pain in left shoulder; M25.511 Pain in right shoulder; M79.601 Pain in right arm; E05.00 Thyrotoxicosis with diffuse goiter without thyrotoxic crisis or storm; I25.2 Old myocardial infarction; Z53.29 Procedure and treatment not carried out because of patient's decision for other reasons; Z79.85 Long-term (current) use of injectable non-insulin antidiabetic drugs; Z79.82 Long term (current) use of aspirin; Z79.899 Other long term (current) drug therapy; Z88.6 Allergy status to analgesic agent; Z95.5 Presence of coronary angioplasty implant and graft; Z91.148 Patient's other noncompliance with medication regimen for other reason; X50.0XXA Overexertion from strenuous movement or load, initial encounter
CPT/HCPCS: 96360; 96372; 99285; 36415; 93005; 83880; 80053 ×2; 83690; 83735; 84484 ×2; 85025 ×2; 85610; 85730; 71046; G0378 ×2; J1644

== ENCOUNTER → 2024-03-25 | Outpatient (CLI) | payer BC ==
--- NOTE | 2024-03-25 12:35 | US ---
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 GLAND SIZE: Right Lobe: 6.6 x 2.5 x 1.1.6 cm Overall Parenchyma: homogeneous Left Lobe: 6.1 x 1.8 x 1.0 cm Overall Parenchyma: homogeneous Isthmus Thickness: 0.26 cm NODULES RIGHT: # of nodules measured on right: 0 LEFT: # of nodules measured on left: 2 1. 0.6 X 0.6 x 0.4 cm, lower lateral, solid or almost completely solid, hypoechoic nodule, which is wider than tall, with smooth margins, without echogenic foci. TR 4. Prior size: no prior 2. 0.4 X 0.4 x 0.4 cm, upper mid, solid or almost completely solid, hypoechoic nodule, which is as wide as it is tall, with smooth margins, without echogenic foci. TR 4. Prior size: no prior ISTHMUS: # of nodules measured in the isthmus: 0 Bilateral neck scanned, no evidence of lymphadenopathy. IMPRESSION: There are 2 new subcentimeter left thyroid lobe TR 4 nodules from prior exam in 2012. Consider follow -up ultrasound in one year as clinically indicated. ACR TI-RADS LEVEL: TR-RADS 4: Follow if > 1 cm, FNA if > 1.5 cm *Highest TI-RADS level nodule reported
== END | disposition home or self-care (01) ==
LOC: RADUSWWP 11:06
PROVIDERS: ATTEND Family Medicine
DX: E04.1 Nontoxic single thyroid nodule (principal)
CPT/HCPCS: 76536

== ENCOUNTER → 2024-03-25 | Outpatient (CLI) | payer BC ==
--- NOTE | 2024-03-26 14:35 | MM ---
Reason for Exam: Screening (asymptomatic). Last mammogram was performed 6 year(s) and 1 month(s) ago. Patient History: Menarche at age 14. Patient has no children. Postmenopausal. Risk Values: Clari 5 year model risk: 1.1%. NCI Lifetime model risk: 9.7%. Prior Study Comparison: 03/30/2013 Bilateral Screening Mammogram, Unknown. 02/28/2018 Bilateral Screening Mammogram, Unknown. Tissue Density: The breasts are heterogeneously dense, which may obscure small masses. Findings: Analyzed By CAD. There is no suspicious group of microcalcifications or new suspicious mass in either breast. Overall Assessment: Negative, BI-RAD 1 Management: Screening Mammogram of both breasts in 1 year. . Patient should continue monthly self-breast exams. A clinical breast exam by your physician is recommended on an annual basis. This exam should not preclude additional follow-up of suspicious palpable abnormalities. Note on Clari scores and lifetime risk: 1. A Clari score greater than 3% is considered moderate risk. If this is the case, consider specialist referral to assess eligibility for a risk reducing agent. 2. If overall lifetime risk for the development of breast cancer is 20% or higher, the patient may qualify for future screening with alternating mammogram and breast MRI. Electronically signed and approved by: Juan Luis Lowe M.D. Radiologis
== END | disposition home or self-care (01) ==
LOC: RADMAMWWP 11:00
PROVIDERS: ATTEND Family Medicine
DX: Z12.31 Encounter for screening mammogram for malignant neoplasm of breast
CPT/HCPCS: 77067

== ENCOUNTER → 2024-11-27 | Outpatient (CLI) | payer BC ==
[2024-11-27 14:36] LABS: African American GFR (CKD) >90 (>60 ml/min/1.73 sqM); Blood Urea Nitrogen 11 mg/dL (7-17); Non-African American GFR(CKD) >90 (>60 ml/min/1.73 sqM)
--- NOTE | 2024-11-27 15:44 | CT ---
EXAMINATION TYPE: CT abdomen pelvis w con CT DLP: 1007.8 mGycm, Automated exposure control for dose reduction was used. DATE OF EXAM: 11/27/2024 3:17 PM COMPARISON: None CLINICAL INDICATION:Female, 54 years old with history of R10.32 LEFT LOWER QUADRANT PAIN; LLQ pain TECHNIQUE: Standard CT of the abdomen and pelvis following the administration of 100 cc of Isovue 3 00 IV contrast material and oral contrast. Coronal and sagittal reformats were performed. FINDINGS: LOWER CHEST: Unremarkable ABDOMEN LIVER: Unremarkable GALLBLADDER AND BILE DUCTS: The gallbladder is surgically absent. No biliary duct dilatation. PANCREAS: Unremarkable. SPLEEN: Unremarkable. ADRENAL GLANDS: The right adrenal gland is unremarkable. Left adrenal gland lesion measuring up to 2. 3 cm with a Hounsfield unit of 82. KIDNEYS AND URETERS: No evidence of hydronephrosis or renal calculus. The kidneys enhance symmetrical ly. Contrast allergy within both collecting systems on the delayed phase. PELVIS BLADDER: Unremarkable REPRODUCTIVE: Anteverted uterus with bilateral tubal ligation clips. ABDOMEN & PELVIS STOMACH AND BOWEL: Small periampullary duodenal diverticulum.Sigmoid diverticulosis without evidence for acute diverticulitis. Submucosal fat deposition within the ascending colon. No surrounding inflam matory changes or wall thickening. The appendix is not identified. Enteric contrast reaches the dista l small bowel. No evidence of bowel obstruction. PERITONEUM: No evidence of pneumoperitoneum or free fluid. VASCULATURE: Mild atherosclerotic calcifications are present throughout the abdominal aorta and its b ranches. No evidence of aortic aneurysm. MUSCULOSKELETAL: No acute osseous abnormalities LYMPH NODES: No evidence for lymphadenopathy. SOFT TISSUE/ABDOMINAL WALL: Unremarkable IMPRESSION: 1. No CT evidence for acute abdominal suspect pelvic process. 2. Sigmoid diverticulosis without evidence for acute diverticulitis. 3. Left adrenal gland indeterminate 2.3 cm lesion. Recommend follow-up CT abdomen with and without IV contrast (adrenal mass protocol). [facility], , 11/27/2024 3:42 PM
== END | disposition home or self-care (01) ==
LOC: RADCTMAIN 13:20
PROVIDERS: ATTEND Family Medicine
DX: K57.30 Diverticulosis of large intestine without perforation or abscess without bleeding (principal)
CPT/HCPCS: 82565; 84520; 74177; Q9967

== ENCOUNTER → 2024-12-16 | Outpatient (CLI) | payer BC ==
--- NOTE | 2024-12-20 20:21 | CT ---
EXAMINATION TYPE: CT abdomen wo/w con DATE OF EXAM: 12/16/2024 5:26 PM COMPARISON: None. CLINICAL INDICATION: Female, 54 years old with history of E27.8 ABNORMALITY ADRENAL GLAND, Abnormalit y of adrenal gland TECHNIQUE: Axial images were obtained from above the diaphragm to the mid pelvis in the axial plane a t 5 mm thick sections. Reconstructed images are reviewed on the computer in the coronal plane. Nelda yed images were obtained. CONTRAST: 100ml mL of Isovue 300. Study performed with Oral Contrast DLP: 1232.7 mGycm, Automated exposure control for dose reduction was used. FINDINGS: Limited CT sections are obtained the lung bases. The lung bases are clear. CT ABDOMEN: Liver: Normal Spleen: Normal Pancreas: Normal Adrenal glands: Left adrenal gland is thickened at 1.9 cm. Right adrenal gland appears normal. Precontrast adrenal gland measures 2 Hounsfield units. Early postcontrast imaging to the left adrenal gland measures 60 Hounsfield units. Delayed Postcontrast imaging through the left adrenal gland has a Hounsfield unit measurement of 36. The absolute washout is 41.7%. Relative washout of 40%. These va lues are suggestive of an consistent with an adrenal adenoma respectively. Gallbladder: Surgically absent Kidneys: No masses are evident. No hydronephrosis is present. No cysts are present. Delayed images were obtained through the kidneys, which remain unremarkable. Aorta: Vascular calcification is within the aorta. Inferior vena cava: Normal. Loops of bowel within the abdomen and pelvis are normal. There are loops of bowel which are incom pletely distended or lack oral contrast limiting their evaluation. IMPRESSION: 1. Left adrenal adenoma. [facility], , 12/20/2024 8:18 PM
== END | disposition home or self-care (01) ==
LOC: RADCTMAIN 16:03
PROVIDERS: ATTEND Family Medicine
DX: D35.02 Benign neoplasm of left adrenal gland (principal); E27.8 Other specified disorders of adrenal gland
CPT/HCPCS: 74170; Q9967